=== PATIENT | female | born 1955 | race Caucasian/White ===

== ENCOUNTER 2016-12-01 16:08 | Inpatient (IN) | payer OTHER ==
--- NOTE | ~2016-12-01 | CR72 ---
[facility] A Service of [facility] RADIOLOGY TEXT RESULTS PATIENT: HEATHER BONILLA LOCATION: [address]-15 : [birth year] UNIT #: [id number] AGE: [address]: Kandi Lilly MD SEX: F ORDER DR: [id number] [facility] [address] [facility]. [place], [place] [address] [id number] MR#: [id number] Acc #: [id number] NAME: HEATHER BONILLA. : 1955 SEX: F STUDY DATE/TIME: 12/07/2016 4:19 UNIT: [facility] ROOM: [facility] STUDY DESCRIPTION: CR Chest Single View Portable Attending Physician: Kandi Lilly M.D. Ordering Physician: Wild Santiago M.D. Primary Care Physician: Primary Care Physician No MEDICAL IMAGING REPORT This report is preliminary unless electronic signature is present EXAM Single view chest INDICATION Respiratory failure for 6 days. FINDINGS Single portable AP view of the chest compared to 12/05/2016. Endotracheal tube has been removed. There is a right PICC. The heart is shifted towards the left. There is now near complete opacification of the left hemithorax. This degree of change is usually due to mucous plugging, rather than a pleural effusion. There is some hyperinflation of the right lung. There is some development of interstitial opacities in the right lung suggesting developing edema. No pneumothorax. IMPRESSION 1. Near complete whiteout of the left lung has developed in a short interval. This degree of change is typically due to mucous plugging and associated atelectasis. The presence of mediastinal shift supports mucous plugging. 2. Developing interstitial opacities in the right lung probably represents a component of interstitial edema. Unexpected findings were called to the patient's nurse at 04:50 on 12/07/2016. Dictated by... Leoncio Vera M.D. THIS IS AN ELECTRONICALLY VERIFIED REPORT Leoncio Vera M.D. at 12/07/2016 11:40 PM [facility] A Service of [facility] & [facility] RADIOLOGY TEXT RESULTS PATIENT: HEATHER BONILLA LOCATION: [facility] CICCU3-15 : 59 UNIT #: [id number] AGE: [address]: Kandi Lilly MD SEX: F ORDER DR: Chyeanne TD: 12/07/2016 11:51 JOB #: [id number] MEDICAL IMAGING REPORT Page 1 of 1 COPY
--- NOTE | ~2016-12-01 | OR ---
Unit #: [id number] #: [id number] Patient: HEATHER BONILLA [id number] [address] [address] [id number] I MR#: [id number] NAME: HEATHER BONILLA ROOM: [facility] Date of Procedure: Admission Date: 12/01/2016 Surgeon: Wild Santiago M.D. : 1955 Attending Physician: Kandi Lilly M.D. Primary Care Physician: Candace Primary Care Physician PROCEDURE OPERATIVE NOTE PROCEDURE Bronchoscopy. INDICATION Pneumonia. PREOPERATIVE DIAGNOSIS Pneumonia. POSTOPERATIVE DIAGNOSIS Pneumonia. DETAILS OF THE PROCEDURE After placing patient in the proper position, bronchoscope introduced through the endotracheal tube which was sitting well above the mynor, we examined the right upper, right middle, right lower lobe, left upper lobe, lingula and left lower lobe. There were thick, mucoid mucus plugs in the left upper and lower lobe area which were therapeutically suctioned and then we did a bronchoalveolar lavage in the left upper and lower lobe area. The patient tolerated the procedure very well. No complications happened. Specimen sent to the lab. Dictated by... Kassie Louis/karoline TD: 12/05/2016 05:06 JOB #: [id number] Unit #: [id number] #: [id number] Patient: HEATHER BONILLA PROCEDURE OPERATIVE NOTE Page 1 of 1 X Wild Santiago MD X PROCEDURE OPERATIVE NOTE
--- NOTE | ~2016-12-01 | CR72 ---
[facility] A Service of [facility] & [facility] RADIOLOGY TEXT RESULTS PATIENT: HEATHER BONILLA LOCATION: [address]-15 : [birth year] UNIT #: [id number] AGE: [address]: Kandi Lilly MD SEX: F ORDER DR: [id number] [facility] [address] [facility]. [place], [place] [address] [id number] I MR#: [id number] Acc #: [id number] NAME: HEATHER BONILLA. : 1955 SEX: F STUDY DATE/TIME: 12/04/2016 11:30 UNIT: [facility] ROOM: [facility] STUDY DESCRIPTION: CR Chest Single View Portable Attending Physician: Kandi Lilly M.D. Ordering Physician: Kandi Lilly M.D. Primary Care Physician: No Primary Care Physician MEDICAL IMAGING REPORT This report is preliminary unless electronic signature is present EXAM Frontal chest 12/04/2016 INDICATIONS Pneumonia. Congestion. Status post intubation today. COMPARISON Frontal chest compared with 05:42 hours. FINDINGS ET tube present, and the tip is approximately 1.5 cm above the level of the mynor. It could be retracted about 3 cm for positioning in the more proximal trachea. Right-sided PICC line in satisfactory position. Cardiac silhouette is borderline enlarged. The right lung appears clear. There has been interval improvement of aeration of the upper lobe on the left. There is persistent band-like atelectasis or pneumonia in the upper lobe zone, and there are hazy opacities in the left lung apex. There is a left-sided effusion with persistent consolidation in the left lung base. No pneumothorax. IMPRESSION 1. ET tube tip is about 1.5 cm above the level of the mynor and could be retracted about 3 cm for positioning in the more proximal trachea. No pneumothorax. 2. Improved appearance of the left lung compared to the prior study. Persistent opacities in the left lung base and left-sided effusion. There is a band-like area of atelectasis or pneumonia in the upper lung zone. STAT * RESULT Dictated by... Kristian Fofana M.D. [facility] A Service of [facility] & [facility] RADIOLOGY TEXT RESULTS PATIENT: HEATHER BONILLA LOCATION: [place] [address]-15 : [birth year] UNIT #: [id number] AGE: [address]: Kandi Lilly MD SEX: F ORDER DR: THIS IS AN ELECTRONICALLY VERIFIED REPORT Kristian Fofana M.D. at 12/04/2016 4:11 PM Shalom TD: 12/04/2016 14:33 JOB #: [id number] MEDICAL IMAGING REPORT Page 1 of 1 COPY
--- NOTE | ~2016-12-01 | CR72 ---
[facility] A Service of [facility] & [facility] RADIOLOGY TEXT RESULTS PATIENT: HEATHER BONILLA LOCATION: [address]-15 : [birth year] UNIT #: [id number] AGE: [address]: Kandi Lilly MD SEX: F ORDER DR: [id number] [facility] [address] [facility]. [place], [place] [address] [id number] I MR#: [id number] Acc #: [id number] NAME: HEATHER BONILLA. : 1955 SEX: F STUDY DATE/TIME: 12/09/2016 5:58 UNIT: [facility] ROOM: [facility] STUDY DESCRIPTION: CR Chest Single View Portable Attending Physician: Kandi Lilly M.D. Ordering Physician: True Mao M.D. Primary Care Physician: No Primary Care Physician MEDICAL IMAGING REPORT This report is preliminary unless electronic signature is present EXAM Portable chest, 12/09. INDICATION Respiratory failure for 8 days. FINDINGS AP portable chest is compared with 12/08/2016. Patient is rotated. Feeding tube in the stomach. Right arm PICC at the SVC level. ET tube in the trachea. Heart size stable. Bilateral infiltrates are slightly worsened which probably reflect worsening edema. There are small effusions, left greater than right. No pneumothorax identified. Dictated by... Ajay Will Jr., M.D. THIS IS AN ELECTRONICALLY VERIFIED REPORT Ajay Will Jr., M.D. at 12/09/2016 4:09 PM DEBBI/horacio TD: 12/09/2016 09:29 JOB #: [id number] MEDICAL IMAGING REPORT Page 1 of 1 COPY
--- NOTE | ~2016-12-01 | EKG ---
PATIENT: HEATHER BONILLA UNIT #: [id number] Ventricular Rate: 89 BPM Atrial Rate: 89 BPM P-R Interval: 124 ms QRS Duration: 78 ms Q-T Interval: 420 ms QTC Calculation(Bezet): 511 ms P Mountainside: 35 degrees Calculated R [place]: 62 degrees Calculated T [place]: 166 degrees Diagnosis Line: Normal sinus rhythm Diagnosis Line: ST and T wave abnormality, consider anterolateral Diagnosis Line: ischemia Diagnosis Line: Prolonged QT Diagnosis Line: Abnormal ECG Diagnosis Line: When compared with ECG of 02-DEC-2016 06:25, Diagnosis Line: (unconfirmed) Diagnosis Line: Premature ventricular complexes are no longer Diagnosis Line: Present Diagnosis Line: QT has lengthened Diagnosis Line: Confirmed by ESTEBAN BOYD MD ([id number]) on 12/07/2016 Diagnosis Line: 3:00:29 PM INTERPRETING MD: DEB ROUSSEAU
--- NOTE | ~2016-12-01 | CO ---
Unit #: [id number] #: [id number] Patient: HEATHER BONILLA [id number] [address] [place], [place] [address] [id number] I MR#: [id number] NAME: HEATHER BONILLA ROOM: [facility] Age: 61 Sex: F Admission Date: 12/01/2016 : 1955 Attending Physician: Kandi Lilly M.D. Primary Care Physician: No Primary Care Physician Consultation Date: 12/02/2016 CONSULTATION REPORT REASON FOR CONSULTATION Elevated troponin. HISTORY OF PRESENT ILLNESS This is a 61-year-old female with a past history of multiple CVAs, hyperlipidemia, seizure disorder, lupus, and tobacco abuse. She lives with her son, who is her caregiver and power of tax attorney. She is bedbound, but she is able to feed herself and smoke cigarettes. She was unable to answer questions, so the majority of this was obtained from her son who was at her bedside. She presented to the ER after increasing weakness over the past two days with decreased p.o. intake. Her son denies recent illness with fever, chills, body aches, or diarrhea. She did vomit twice. Her chest x-ray in the ER showed pneumonia which was suspicious for aspiration pneumonia. Her troponin was also elevated in the ER at 8.76. She denies chest pain or pressure or tightness. A bedside quick ultrasound was performed, per Dr. Mayco Alejandre, which showed a severely depressed EF of about 10% to 15%. Full echocardiogram is currently pending. PAST MEDICAL HISTORY 1. Hyperlipidemia. 2. Multiple CVAs. 3. Lupus. 4. Seizure disorder. 5. Tobacco abuse. 6. Osteoporosis. 7. Bilateral foot decubitus, now healed. PAST SURGICAL HISTORY Total abdominal hysterectomy. ALLERGIES Penicillin. HOME MEDICATIONS 1. Simvastatin 40 mg p.o. at bedtime. 2. Klonopin 0.5 mg p.o. three times a day. 3. Keppra 500 mg p.o. twice a day. 4. Potassium chloride 10 mEq p.o. daily. SOCIAL HISTORY The patient is immobile and bedbound. She is able to feed herself and smoke. She lives with her son and widejdwv-dn-sks who are her caregivers. Unit #: [id number] #: [id number] Patient: HEATHER BONILLA Her son is her iejbj-xs-zvsutuch. She denies alcohol or illicit drug use. FAMILY HISTORY Negative for coronary artery disease. REVIEW OF SYSTEMS Unable to obtain from patient at this time. Her son was able to provide the answers. Otherwise negative except for what was stated in the HPI. PHYSICAL EXAMINATION VITAL SIGNS: Temperature 97.4, heart rate 102, respiratory rate 24, blood pressure 97/66. Height 61 inches, weight 45 kg. GENERAL: This is a pleasant 61-year-old female resting in bed in no acute distress. HEENT: Head is atraumatic, normocephalic. Pupils are equal and round. Mucous membranes are moist. NECK: Supple. Trachea is midline. Negative for JVD. LUNGS: Rhonchi. Nonlabored respirations. CARDIOVASCULAR: S1, S2. Regular rate and rhythm. No significant murmurs, rubs, or gallops. ABDOMEN: Soft, nontender, nondistended. EXTREMITIES: Pedal pulses are diminished. No pedal edema. No cyanosis. NEUROLOGIC: Alert and awake, oriented to person. Right-sided weakness. DIAGNOSTIC STUDIES LABORATORY: Sodium 138, potassium 4.5, chloride 115, BUN 43, creatinine 1.3, glucose 95. Hemoglobin 9.1, hematocrit 29.5, white blood cell count 11.6, platelets 55,000. Troponin 8.6 with repeat troponin 6.4. IMAGING: Chest x-ray showed diffuse bilateral reticulonodular infiltrate. A 3.9 cm infrarenal abdominal aortic aneurysm. Head CT shows multiple old infarcts with no acute changes. CARDIOVASCULAR: EKG reveals sinus rhythm with a ventricular rate of [address] changes. ASSESSMENT 1. Non ST elevated myocardial infarction. 2. Acute systolic congestive heart failure with ejection fraction approximately 10% to 15%. 3. Pneumonia, suspect aspiration. 4. Acute kidney injury. 5. Tobacco abuse. 6. Thrombocytopenia. 7. Lupus. 8. History of multiple cerebrovascular accidents. PLAN 1. We will get a full echocardiogram. 2. Check a fasting lipid profile. 3. Add low-dose beta aurelio with parameters for heart rate and blood pressure. 4. Add HEMAL inhibitor as blood pressure tolerates. 5. We will monitor creatinine closely. 6. Continue statin. 7. Check lipid profile. 8. BMP and CBC in a.m. Unit #: [id number] #: [id number] Patient: HEATHER BONILLA Thank you for asking us to see this patient. We appreciate the consult. Dictated by... Geraldine Parsons APRN for Kassie Arellano TD: 12/03/2016 14:27 JOB #: [id number] CONSULTATION REPORT Page 1 of 1 X X CONSULTATION REPORT
--- NOTE | ~2016-12-01 | CO ---
Unit #: [id number] #: [id number] Patient: HEATHER BONILLA [id number] [address] [place], [place] [address] [id number] I MR#: [id number] NAME: HEATHER BONILLA ROOM: [facility] Age: 61 Sex: F Admission Date: 12/01/2016 : 1955 Attending Physician: Kandi Lilly M.D. Primary Care Physician: No Primary Care Physician Consultation Date: 12/08/2016 CONSULTATION REPORT REASON FOR CONSULTATION Gross hematuria. HISTORY This 61-year-old woman developed gross hematuria from her catheter overnight in the Intensive Care Unit. The catheter was replaced apparently with three way irrigation and after manually irrigating some clots it has run entirely clear. She was hospitalized with pneumonia and myocardial infarction. It is thought that there may have been some Whitten traction trauma. Further history is from the medical record as patient is intubated and sedated. PAST MEDICAL HISTORY CVA, paraplegia, lupus, seizures, ejection fraction 10%. PAST SURGICAL HISTORY Hysterectomy, foot surgeries. MEDICATIONS Low dose aspirin, Lovenox, and multiple other medications. ALLERGIES Penicillin. FAMILY HISTORY Noncontributory. SOCIAL HISTORY Positive for tobacco use. REVIEW OF SYSTEMS Unable. PHYSICAL EXAMINATION GENERAL: The patient is intubated and sedated. ABDOMEN: Soft, nontender. DIAGNOSTIC STUDIES LABORATORY STUDIES: BUN 34, creatinine 1.6, WBC 24.5, hemoglobin 9.8, platelets 148, urine culture is pending. IMAGING STUDIES: X-rays - none of the upper tract. Unit #: [id number] #: [id number] Patient: HEATHER BONILLA IMPRESSION 1. Gross hematuria, likely mechanical Whitten trauma in intensive care setting with ongoing anticoagulants. 2. Very poor prognosis discussed with Dr. Mao and with son. 3. Significant tobacco history. PLAN Will await urine culture. Observe off of CBI with continued catheter drainage. Will defer further evaluation unless significant recurrence of hematuria and/or sufficient recovery to indicate upper tract evaluation and cystoscopy. Will follow at this time. Dictated by... Kassie Bray/efraín TD: 12/08/2016 11:38 JOB #: [id number] CC: Joya Borrego M.D. CONSULTATION REPORT Page 1 of 1 X Ajay Rosen MD CONSULTATION REPORT
--- NOTE | ~2016-12-01 | CR72 ---
[facility] A Service of [facility] & [facility] RADIOLOGY TEXT RESULTS PATIENT: HEATHER BONILLA LOCATION: [address]15 : [birth year] UNIT #: [id number] AGE: [address]: Kandi Lilly MD SEX: F ORDER DR: [id number] [facility] [address] [facility]. [place], [place] [address] [id number] I MR#: [id number] Acc #: [id number] NAME: HEATHER BONILLA. : 1955 SEX: F STUDY DATE/TIME: 12/05/2016 5:00 UNIT: [facility] ROOM: [facility] STUDY DESCRIPTION: CR Chest Single View Portable Attending Physician: Kandi Lilly M.D. Ordering Physician: Wild Santiago M.D. Primary Care Physician: No Primary Care Physician MEDICAL IMAGING REPORT This report is preliminary unless electronic signature is present EXAM Portable chest, 12/05. INDICATIONS Respiratory failure and pneumonia. FINDINGS AP portable chest is compared with 12/04/2016. ET tube [id number] trachea in good position. Right arm PICC in the SVC. Heart size stable. Right lung is clear. There is still consolidation at the left base with a small left effusion. No pneumothorax. Dictated by... Ajay Will Jr., M.D. THIS IS AN ELECTRONICALLY VERIFIED REPORT Ajay Will Jr., M.D. at 12/05/2016 3:48 PM DEBBI/sherman TD: 12/05/2016 14:02 JOB #: [id number] MEDICAL IMAGING REPORT Page 1 of 1 COPY
--- NOTE | ~2016-12-01 | OR ---
Unit #: [id number] #: [id number] Patient: HEATHER BONILLA [id number] [address] [address] [id number] I MR#: [id number] NAME: HEATHER BONILLA ROOM: [facility] Date of Procedure: Admission Date: 12/01/2016 Surgeon: Wild Santiago M.D. : 1955 Attending Physician: Kandi Lilly M.D. Primary Care Physician: Candace Primary Care Physician PROCEDURE OPERATIVE NOTE PROCEDURE Endotracheal intubation. INDICATION Respiratory failure. PREOPERATIVE DIAGNOSIS Respiratory failure. POSTOPERATIVE DIAGNOSIS Respiratory failure. DETAILS OF THE PROCEDURE After placing patient in a proper position, we gave 20 mg of etomidate IV and 4 mg of versed IV. Under direct visualization with the laryngoscope, a size 8 endotracheal tube was passed through the vocal cords. The patient tolerated the procedure very well. No complications happened. Dictated by... Kassie Louis/karoline TD: 12/05/2016 05:03 JOB #: [id number] PROCEDURE OPERATIVE NOTE Page 1 of 1 X Wild Santiago MD X PROCEDURE OPERATIVE NOTE
--- NOTE | ~2016-12-01 | OR ---
Unit #: [id number] #: [id number] Patient: HEATHER BONILLA [id number] [address] [address] [id number] I MR#: [id number] NAME: HEATHER BONILLA ROOM: [facility] Date of Procedure: 12/07/2016 Admission Date: 12/01/2016 Surgeon: Yony Mao M.D. : 1955 Attending Physician: Kandi Lilly M.D. Primary Care Physician: Candace Primary Care Physician PROCEDURE OPERATIVE NOTE PREOPERATIVE DIAGNOSIS Respiratory failure and left side complete opacification. POSTOPERATIVE DIAGNOSIS PROCEDURE PERFORMED Direct laryngoscope intubation. PRE-OP MEDICATIONS 1. Etomidate 20 mg IV x1. 2. Versed 2 mg IV x1. INDICATION FOR PROCEDURE Respiratory failure and mucous plug. COMPLICATIONS None. DESCRIPTION OF PROCEDURE An informed consent was obtained from the son after explaining the benefits and risks of this procedure. The patient was prepped and positioned in the proper way. Then my gift shop assistant, Steph, the nurse practitioner, assisted with this procedure. The patient was premedicated with etomidate and Versed 2 mg and then with laryngoscope (1) size 3, a good view of his vocal cords were obtained and then size 8 ET tube were passed beyond the vocal cord with no complication. The cuff was inflated. Then, a CO2 color change was checked. The patient tolerated her procedure well with no immediate complications. Dictated by... Yony Mao M.D. EA/efraín TD: 12/07/2016 12:34 JOB #: [id number] Unit #: [id number] #: [id number] Patient: HEATHER BONILLA PROCEDURE OPERATIVE NOTE Page 1 of 1 X YONY WOLFF MD PROCEDURE OPERATIVE NOTE
--- NOTE | ~2016-12-01 | CR72 ---
[facility] A Service of [facility] & [facility] RADIOLOGY TEXT RESULTS PATIENT: HEATHER BONILLA LOCATION: [place] [address]-15 : [birth year] UNIT #: [id number] AGE: [address]: Kandi Lilly MD SEX: F ORDER DR: [id number] [place] [address] [facility]. [place], [place] [address] [id number] I MR#: [id number] Acc #: [id number] NAME: HEATHER BONILLA. : 1955 SEX: F STUDY DATE/TIME: 12/03/2016 4:59 UNIT: [facility] ROOM: [facility] STUDY DESCRIPTION: CR Chest Single View Portable Attending Physician: Kandi Lilly M.D. Ordering Physician: True Mao M.D. Primary Care Physician: No Primary Care Physician MEDICAL IMAGING REPORT This report is preliminary unless electronic signature is present EXAM Single view chest. INDICATIONS Congestive heart failure and pneumonia for 2 days. FINDINGS Single portable AP view of the chest compared to 12/01/2016. The right PICC over the SVC. Heart and mediastinal contours are unchanged. There is left basilar airspace opacity and/or pleural effusion. IMPRESSION 1. New left lower lobe airspace opacity/pleural effusion. 2. Right PICC terminates over the SVC. Dictated by... Leoncio Vera M.D. THIS IS AN ELECTRONICALLY VERIFIED REPORT Leoncio Vera M.D. at 12/04/2016 1:02 AM MADHU/isabel TD: 12/03/2016 18:05 JOB #: [id number] MEDICAL IMAGING REPORT Page 1 of 1 COPY
--- NOTE | ~2016-12-01 | FU ---
[facility] Nutrition Therapy DATE: 12/03/16 Patient: HEATHER BONILLA Physician: KAREL Address: [address] [facility] Room/Bed: [address], Zip: [place] [address] Admit Date: 12/01/16 Date of : [birth year] Height: 5 1 Weight: 101 46 NUTRITION MONITORING/FOLLOW-UP: Reason: NUTRITION F/U- PATIENT PLACED ON DIET IN ICU Anthropometrics: HT: 61", WT: 46.5KG, BMI: 19.4 Labs: 12/03/16- K: 3.4, BUN: 40, CREA: 1.5, ALB: 2.6, GFR: 37.8 Meds: 5% DEXTROSE, KCL, MAG SULFATE, DOPAMINE, FUROSEMIDE, MILK OF MAG, COLACE I&O's: [id number]/[phone] Skin: FUNGAL INFECTION BL GROIN, OLD PRESSURE WOULDS TO BL HEELS (HEALED) Estimated Nutrition Needs: INCREASED 2' CURRENT DIAGONSES, ALTERED NUTRIENT NEEDS Assessment: PATIENT WAS SEEN BY TRAIN CREW MEMBER WHO UPGRADED PATIENT'S DIET TO PUREE WITH 6 SMALL MEALS A DAY, AND TO EAT SLOWLY. PATIENT IS CURRENTLY ON A 2000ML FLUID RESTRICTION. NURSING REPORTED THAT THEY ARE TRYING TO AVOID PLACING A DHT IF POSSIBLE, AND PATIENT DRINKS 2 ENSURES DAILY AT HOME. PATIENT NOT APPROPRIATE FOR INTERVIEW ATT. Dx: INADEQUATE PROTEIN-ENERGY INTAKE R/T WEAKNESS AEB EMESIS AFTER EATING ON THE DAYS PRIOR TO ADMISSION, NPO STATUS- IMPROVED: PATIENT NO LONGER NPO Intervention: 1. INITIATE PO DIET PER TRAIN CREW MEMBER RECOMMENDATIONS, MONITOR FOR EMESIS AFTER MEALS 2. SUPPLEMENTATION 3. MEDS/FLUIDS PER MD Monitoring, Evaluation and Goals: 1. ORAL INTAKE; ADVANCE DIET PER TRAIN CREW MEMBER RECOMMENDATIONS APPROPRIATE 2. WEIGHT; MONITOR FLUID STATUS, PREVENT LOSS OF LEAN BODY MASS Recommendations: 1. PER TRAIN CREW MEMBER RECOMMENDATIONS START PUREED DIET WITH 6 SMALL MEALS/DAY. CONTINUE 2000ML FLUID RESTRICTION PER MD, ADD 2GM NA TO DIET ORDER. 2. SEND ENSURE BID WITH BREAKFAST AND LUNCH AND MAGIC CUPS WITH LUNCH AND DINNER. 3. ENCOURAGE ADEQUATE PO AND SUPPLEMENT INTAKES RD TO F/U PER PROTOCOL AND PRN R/T PATIENT MODERATELY COMPROMISED Status: [facility] Nutrition Therapy DATE: 12/03/16 Patient: HEATHER BONILLA Physician: KAREL Address: [address] Room/Bed: [address], Zip: [place] [address] Admit Date: 12/01/16 Date of : [birth year] Height: 5 1 Weight: 101 46 Respectfully, RHINA BALDERAS RD, LD [employer] and Nutrition[facility] Services [facility] cc: client file
--- NOTE | ~2016-12-01 | OR ---
Unit #: [id number] #: [id number] Patient: HEATHER BONILLA [id number] [address] [address] [id number] I MR#: [id number] NAME: HEATHER BONILLA [facility]OM[facility] Date of Procedure: 12/07/2016 Admission Date: 12/01/2016 Surgeon: Yony Mao M.D. : 1955 Attending Physician: Kandi Lilly M.D. Primary Care Physician: Candace Primary Care Physician PROCEDURE OPERATIVE NOTE PROCEDURE PERFORMED Therapeutic and diagnostic bronchoscopy with bronchial washings. INDICATION FOR PROCEDURE Complete opacification of the left lung due to a large mucous plug. FINDINGS Extensive and large mucus plugs extending from the level of the mynor and completely obstructing the left main bronchus into the left upper lobe, lingula, and left lower lobe. PREMEDICATION Versed 3 mg IV x1. DESCRIPTION OF THE PROCEDURE An informed consent was obtained from the son after explaining the benefits and risks of this procedure. The bronchoscope was advanced through the ET tube at the level of the mynor. A large, thick, greenish-yellowish mucous plug was noted obstructing the left main bronchus and then with normal saline flushes the mucous plug was broke in small pieces and then was aspirated out. The left upper lobe, lingula, and left lower lobe were examined after and appeared just erythematous from the bronchoscope but all the mucous plugs again were aspirated and washing was obtained from the left lower lobe. The bronchoscope was retracted and then readvanced the right main bronchus, and the right upper lobe, right lower lobe and right middle lobe were just fine. The bronchoscope was retracted out then and patient tolerated his procedure well with no immediate complication. Dictated by... Yony Mao M.D. EA/efraín TD: 12/07/2016 12:45 JOB #: [id number] Unit #: [id number] #: [id number] Patient: HEATHER BONILLA PROCEDURE OPERATIVE NOTE Page 1 of 1 X YONY WOLFF MD X PROCEDURE OPERATIVE NOTE
--- NOTE | ~2016-12-01 | CR72 ---
[facility] A Service of [facility] & [facility] RADIOLOGY TEXT RESULTS PATIENT: HEATHER BONILLA LOCATION: [place] [id number] : [birth year] UNIT #: [id number] AGE: [address]: Kandi Lilly MD SEX: F ORDER DR: [id number] [facility] [address] [facility] [facility] [place], [place] [address] [id number] I MR#: [id number] Acc #: [id number] NAME: HEATHER BONILLA : 1955 SEX: F STUDY DATE/TIME: 12/08/2016 5:47 UNIT: [facility] ROOM: [facility] STUDY DESCRIPTION: CR Chest Single View Portable Attending Physician: Kandi Lilly M.D. Ordering Physician: True Mao M.D. Primary Care Physician: Primary Care Physician No MEDICAL IMAGING REPORT This report is preliminary unless electronic signature is present EXAM Single view chest INDICATION Respiratory failure. FINDINGS Single portable AP view of the chest compared to 12/07/2016. Endotracheal tube has been positioned approximately 4 cm above the mynor. The right PICC and enteric tube remain in place. There is significantly improved aeration in the left lung. There is some developing atelectasis and/or effusion in the right lung base. IMPRESSION 1. Significantly improved aeration in the left lung with moderate basilar airspace opacity and/or effusion remaining. 2. Developing atelectasis and/or small effusion in the right lung. Dictated by... Leoncio Vera M.D. THIS IS AN ELECTRONICALLY VERIFIED REPORT Leoncio Vera M.D. at 12/09/2016 12:49 AM MADHU/dashawn TD: 12/08/2016 06:40 JOB #: [id number] MEDICAL IMAGING REPORT Page 1 of 1 COPY
--- NOTE | ~2016-12-01 | FU ---
[facility] Nutrition Therapy DATE: 12/05/16 Patient: HEATHER BONILLA Physician: KAREL Address: [address] [place] [address] RD Room/Bed: [address], Zip: [place] [address] Admit Date: 12/01/16 Date of : [birth year] Height: 5 1 Weight: 103 47 NUTRITION MONITORING/FOLLOW-UP: Reason: Consult for enteral nutrition Anthropometrics: Ht: 5'1" adm wt: 46.5 kg BMI: 19.4 Wt 12/05: 47 kg Labs: Na+ 130 K+ 3.1 Gluc 132 BUN 40 Creat 1.5 Ca++ 7.5 Alb 2.2 AST 47 Accuchecks 104 GFR 37.8 Meds: D5%, KCl, MgSO4, dopamine, levophed, furosemide, MOM, colace, versed, zofran I&O's: 2234/1085, last BM 12/04 Skin: no changes noted since previous assessment Edema: None noted Estimated Nutrition Needs: 0980-1853 kcals (28-32 kcals/kg) 56-70 grams protein (1.2-1.5 grams/kg) Fluids per MD Assessment: Chart reviewed, events noted. RD previously assessed the pt on 12/03 when the pt was ordered a diet per STEEL DETAILER recommendations. Pt is now intubated in the ICU on pressors. Per RN report, DHT has been placed and RD consulted to provide enteral nutrition recommendations. Per previous nutrition assessments, the pt was eating poorly prior to admission with emesis after PO intake. Of note, the pt was on a fluid restriction prior to intubation with h/o CHF. Please see recommendations below. Dx: Inadequate protein-energ intake RT clinical condition, ventilator dependence AEB NPO status, RD consult for EN recommendations. Intervention: 1. Enteral nutrition Monitoring, Evaluation and Goals: 1. Oral intake- NO LONGER RELEVANT (PT INTUBATED) 2. Weight; monitor fluid status, prevent loss of lean body mass- IN PROGRESS NEW GOALS (IN ADDITION TO ABOVE): 1. Enteral nutrition; provide >80% goal volume x 24 hrs [facility] Nutrition Therapy DATE: 12/05/16 Patient: HEATHER BONILLA Physician: KAREL Address: [address] [place] [address] RD Room/Bed: [address], Zip: [place] [address] Admit Date: 12/01/16 Date of : [birth year] Height: 5 1 Weight: 103 47 2. Improve labs; electrolytes, BUN, creat Recommendations: 1. Once medically feasible, start enteral nutrition with TwoCal HN @ 10 mL/hr. Increase by 10 mL q 8 hrs as tolerated to goal of 30 mL/hr. This will provide: 1440 kcals/ 60 grams protein/ 504 mL free H20 *Free H20 flushes per MD discretion noting CHF 2. If the pt is extubated, recommend diet per STEEL DETAILER recommendations. RD will follow up to order supplements as appropriate. Status: Pt is at moderate nutritional risk. RD will continue to follow up per protocol. Respectfully, RON VELASQUEZ RD, LD Food and Nutritional Services [facility] cc: client file
--- NOTE | ~2016-12-01 | HP ---
Unit #: [id number] #: [id number] Patient: HEATHER BONILLA [id number] [address] [place], [place] [address] [id number] I MR#: [id number] NAME: HEATHER BONILLA ROOM: [facility] Age: 61 Sex: F Admission Date: 12/01/2016 : 1955 Attending Physician: Wild Santiago M.D. Primary Care Physician: Primary Care Physician No HISTORY AND PHYSICAL CHIEF COMPLAINT Possible aspiration pneumonia, gjq-XT-feeaiejyd WV. HISTORY OF PRESENT ILLNESS This very pleasant 61-year-old female with multiple CVAs, SLE, seizure disorder, hyperlipidemia, was transferred from [facility] emergency department for weakness, found to have pneumonia and a byt-IY-mdousrzgk WV. The patient herself is a poor historian. Son supplements history. The patient was in her usual state of health until two days prior to admission when she became increasingly weak, unable to feed herself with diminished p.o. intake, and some episodes of vomiting after eating. No real cough or shortness of breath, no complaints of chest pain, fever or chills. She went to [facility] emergency department this afternoon where her chest x-ray shows diffuse bilateral reticulonodular infiltrates. She was given IV clindamycin for possible aspiration. Family states that she does not typically have difficulty swallowing or history of aspiration. Head CT showed multiple old-appearing CVAs. Troponin was performed and was 7.5. Her EKG shows ST-wave inversions mainly laterally but also a little bit in the inferior leads. Patient denies active chest pain currently. Her current blood pressure is 88/65, heart rate 103, O2 saturation is 100% on 1 liter of oxygen. She received a therapeutic dose of Lovenox, aspirin, albuterol and 900 mg of IV clindamycin prior to transfer. Although Solu-Medrol and nitroglycerin paste were ordered, family declined these two medicines. I have discussed the case with Dr. Santiago who will be seeing the patient in the ICU as well, and asked that clindamycin be continued along with some Levaquin pending further workup given that patient is penicillin allergic. Cardiology has not yet been called about the patient and I will make a call shortly to them as well. PAST MEDICAL HISTORY 1. Hyperlipidemia. 2. Lupus. 3. Multiple CVAs with paraplegia. 4. Seizure disorder. 5. Osteoporosis. 6. Total abdominal hysterectomy. 7. Bilateral foot decubiti now healed. ALLERGIES Penicillin. HOME MEDICATIONS Unit #: [id number] #: [id number] Patient: HEATHER BONILLA 1. Klonopin 05 mg t.i.d. 2. Zocor 40 mg daily. 3. Keppra 500 mg b.i.d. 4. Potassium 10 mEq daily. SOCIAL HISTORY The patient lives with her son and son's family. She smokes one-half pack per day of tobacco. Does not drink alcohol. FAMILY HISTORY Negative for CAD. REVIEW OF SYSTEMS Somewhat difficult to obtain as patient herself is a poor historian. PHYSICAL EXAMINATION VITAL SIGNS: Temperature will be obtained, pulse 103 with some PVCs, blood pressure 88/65, O2 saturation is 100% on 1 liter of oxygen. GENERAL: Pleasant, very thin 61-year-old female currently in no acute distress. HEENT: Eyes PERRLA. Extraocular muscles are intact. Pharynx edentulous, patient has dentures in place. NECK: Supple without adenopathy or thyromegaly. CHEST: Rhonchi. HEART: Normal S1, S2 with no definite murmur. ABDOMEN: Bowel sounds are present. No hepatosplenomegaly, tenderness or masses. EXTREMITIES: Diminished pedal pulses in the feet with flexion contractions of the feet, healed heel decubiti. NEUROLOGIC: Awake, alert. She is a bit confused. Cranial nerves are intact. She is unable to move her legs. She can squeeze my hands bilaterally but her right hand is stronger than her left hand. Needs help just to rollover. DIAGNOSTIC STUDIES LABORATORY: Prior to transfer hematocrit 34.7, white blood cell count 12.7, platelet count 74. SMA-12 CO2 is 20.5, glucose 142, BUN 51, creatinine 1.8, calcium 8.5, unsure if the GFR is 28 or 34 according to her labs, albumin 3. Lactic acid 2.2. Troponin 7.56. INR 1.27, PTT 37. IMAGING: Chest x-ray diffuse bilateral reticulonodular infiltrates. Suspect 3.9 cm infrarenal abdominal aortic aneurysm, slightly increased from 2013 when it was 3.[address] shows multiple old infarcts although some of these infarcts appear to be new since prior CT but nothing acute. Atrophy noted. CARDIOVASCULAR: EKG normal sinus rhythm rate 96 with T-wave inversions mainly laterally but there are some T-wave inversions noted inferior as well. ASSESSMENT 1. Pneumonia, suspect aspiration versus community-acquired. Patient is penicillin allergic. 2. Tvz-MG-setyuoqia myocardial infarction, asymptomatic. 3. Multiple cerebrovascular accidents with paraplegia. 4. Seizure disorder on Keppra. 5. Systemic lupus erythematosus. Unit #: [id number] #: [id number] Patient: HEATHER BONILLA 6. Hyperlipidemia. 7. Acute kidney injury. 8. Thrombocytopenia. 9. Tobacco use. PLAN 1. Clindamycin and Levaquin for now, I have discussed the case with Dr. Santiago. 2. Will dose medications based on patient's renal function. 3. Gentle IV fluids, will give a small bolus now. 4. Aspirin and Lovenox. 5. Re-order patient's home medicines. 6. Serial cardiac enzymes, obtain echo, and we will discuss the case with Cardiology. 7. Repeat all labs in the morning. 8. Check B12 level. Critical care time spent in evaluating this patient was 40 minutes. Dictated by Kassie Moody/danielle TD: 12/01/2016 21:47 JOB #: [id number] HISTORY AND PHYSICAL Page 1 of 1 X Joya Borrego MD X HISTORY AND PHYSICAL
--- NOTE | ~2016-12-01 | CR6 ---
[facility] A Service of [facility] & [facility] RADIOLOGY TEXT RESULTS PATIENT: HEATHER BONILLA LOCATION: [address] : [birth year] UNIT #: [id number] AGE: [address]: Kandi Lilly MD SEX: F ORDER DR: [id number] [facility] [address] [place], [place] [address] [id number] I MR#: [id number] Acc #: [id number] NAME: HEATHER BONILLA. : 1955 SEX: F STUDY DATE/TIME: 12/05/2016 8:48 UNIT: [facility] ROOM: [facility] STUDY DESCRIPTION: CR Abdomen Portable Sng View Attending Physician: Kandi Lilly M.D. Ordering Physician: Tato Daniels M.D. Primary Care Physician: No Primary Care Physician MEDICAL IMAGING REPORT This report is preliminary unless electronic signature is present EXAM Supine radiograph of the abdomen 12/05/2016 HISTORY Dobbhoff tube placement. COMPARISON STUDIES CT abdomen and pelvis 01/25/2014 FINDINGS Supine radiograph of the abdomen is presented. Enteric tube extends to level of distal stomach. Ill defined density left retrocardiac region probably reflects combination of airspace disease and small left pleural effusion. Left basilar pneumonia and/or atelectasis could be considered. The bowel gas pattern is normal. There is no evidence of free air. No acute appearing bony abnormality. Abdominal aortic aneurysm measuring approximately 4 cm in diameter. On prior CT examination 01/25/2014 the aneurysm sac measured about 3.7 cm in diameter. Taking into account magnification factors on abdominal plain radiograph, there is probably minimal, if any, change in the caliber of the aneurysm sac in this single plane. The anterior is best further evaluated, if clinically warranted at this time, with CT angiography. Dictated by... Triston Gonzales M.D. THIS IS AN ELECTRONICALLY VERIFIED REPORT Triston Gonzales M.D. at 12/05/2016 5:50 PM Shadi TD: 12/05/2016 17:01 JOB #: [id number] [facility] A Service of [facility] & [facility] RADIOLOGY TEXT RESULTS PATIENT: HEATHER BONILLA LOCATION: [address] : [birth year] UNIT #: [id number] AGE: [address]: Kandi Lilly MD SEX: F ORDER DR: MEDICAL IMAGING REPORT Page 1 of 1 COPY
--- NOTE | ~2016-12-01 | CR7 ---
[facility] A Service of [facility] & [facility] RADIOLOGY TEXT RESULTS PATIENT: HEATHER BONILLA LOCATION: [address] : [birth year] UNIT #: [id number] AGE: [address]: Kandi Lilly MD SEX: F ORDER DR: [id number] [facility] [address] [facility]. [place], [place] [address] [id number] I MR#: [id number] Acc #: [id number] NAME: HEATHER BONILLA. : 1955 SEX: F STUDY DATE/TIME: 12/06/2016 9:59 UNIT: [facility] ROOM: [facility] STUDY DESCRIPTION: CR Abdomen Single AP View Attending Physician: Kandi Lilly M.D. Ordering Physician: Wild Santiago M.D. Primary Care Physician: No Primary Care Physician MEDICAL IMAGING REPORT This report is preliminary unless electronic signature is present EXAM Single-view abdomen. HISTORY Ileus. COMPARISON 12/05/2016 FINDINGS A single AP view of the abdomen demonstrates a nonobstructive bowel gas pattern. Minimal air distension of the transverse colon. Extensive aortic and iliac vascular calcifications noted. Weighted tip of a feeding tube noted within the distal stomach. No organomegaly. Generalized osteopenia. Overall the bowel gas pattern is unremarkable and no convincing evidence of ileus. Dictated by... Corey Dunn M.D. THIS IS AN ELECTRONICALLY VERIFIED REPORT Corey Dunn M.D. at 12/07/2016 12:29 PM [place] TD: 12/06/2016 22:51 JOB #: [id number] MEDICAL IMAGING REPORT Page 1 of 1 COPY
--- NOTE | ~2016-12-01 | A ---
[facility] Nutrition Therapy DATE: 12/02/16 Patient: HEATHER BONILLA Physician: KAREL Address: [address] [place] [address] Room/Bed: [address], Zip: [place] [address] Admit Date: 12/01/16 Date of : [birth year] Height: 5 1 Weight: 102 46.5 NUTRITIONAL ASSESSMENT: REASON: NPO status in ICU 61 yo female admitted for possible aspiration PNA, weakness, NSTEMI PMH: Lupus, multiple previous strokes, SLE, seizure disorder, paraplegic, CHF, EF~10%, HLD, osteoporosis, smoker Anthropometrics: Ht: 5'1" Wt: 46.5 kg BMI: 19.4 Labs: Cl- 115 BUN 43 ca++ 7.4 Alb 2.3 GFR 44.9 Meds: Furosemide, protonix, colace, zofran, MOM, dopamine I/O & Bowel function: 1119/275, last BM 12/01 Skin Integrity: Fungal infection BL groin/ wolfgang-area Old pressure wounds BL heels (healed) Edema: none noted Estimated Nutrition Needs: 8942-1225 kcals (28-32 kcals/kg) 56-70 grams protein (1.2-1.5 grams/kg) Diet: NPO Assessment: Chart reviewed, events noted. 61 yo female admitted for NSTEMI, weakness and possible aspiration PNA. Per MD note and RN report, the pt was able to feed herself until a couple days ago when she became weak. Pt has had decreased nutritional intake since then, and some emesis after eating. MACHINE SHOP REPAIR TECHNICIAN was previously consulted; however, holding MACHINE SHOP REPAIR TECHNICIAN eval at this time for pt to remain NPO. Pt with significant cardiovascular history noting CHF. Weight suspected due to noted poor intake. Pt is a poor historian and is not appropriate for nutrition interview/ education at this time. Please see recommendations below. Dx: Inadequate protein-energy intake RT weakness AEB emesis after eating on the days prior to admission, NPO status. Intervention: 1. MACHINE SHOP REPAIR TECHNICIAN once approriate 2. EN if not advanced to PO diet [facility] Nutrition Therapy DATE: 12/02/16 Patient: HEATHER BONILLA Physician: KAREL Address: [address] [place] [address] Room/Bed: [address], Zip: [place] [address] Admit Date: 12/01/16 Date of : [birth year] Height: 5 1 Weight: 102 46.5 Monitoring, Evaluation and Goals: 1. Oral intake; advance diet per MACHINE SHOP REPAIR TECHNICIAN recommendations as appropriate 2. Enteral nutrition; initiate if unable to advance to PO diet 3. Weight; monitor fluid status, prevent loss of lean body mass Recommendations: 1. Once medically feasible, recommend MACHINE SHOP REPAIR TECHNICIAN evaluation due to noted possible aspiration PNA. Advance diet per MACHINE SHOP REPAIR TECHNICIAN recommendations + 2 gram Na+ restriction and 6 small meals. 2. If unable to advance to PO diet, consider obtaining enteral access once medically feasible when the pt is hemodynamically stable. Initiate enteral nutrition with (low volume formula) TwoCal HN @ 15 mL/hr. Increase by 10 mL q 8 hrs as tolerated to goal of 30 mL/hr to provide: 1440 kcals/ 60 grams protein/ 504 mL free H20 *Free water flushes per MD orders noting h/o CHF Pt is at moderate nutritional risk. RD will follow hospital course per protocol. Respectfully, RON VELASQUEZ, ROB, LD Food and Nutritional Services [facility] cc: client file
--- NOTE | ~2016-12-01 | CT57 ---
[facility] A Service of [facility] & [facility] RADIOLOGY TEXT RESULTS PATIENT: HEATHER BONILLA LOCATION: [address] : [birth year] UNIT #: [id number] AGE: [address]: Kandi Lilly MD SEX: F ORDER DR: [id number] [facility] [address] [facility] [facility]. [place], [place] [address] [id number] I MR#: [id number] Acc #: [id number] NAME: HEATHER BONILLA : 1955 SEX: F STUDY DATE/TIME: 12/03/2016 15:45 UNIT: [facility] ROOM: [facility] STUDY DESCRIPTION: CT Chest Wo Cont Attending Physician: Kandi Lilly M.D. Ordering Physician: Wild Santiago M.D. Primary Care Physician: No Primary Care Physician MEDICAL IMAGING REPORT This report is preliminary unless electronic signature is present EXAM CT chest without contrast. HISTORY Shortness of air for 3 days. [address]neumonia. TECHNIQUE This CT exam was performed with one or more of the following radiation dose reduction techniques: automatic exposure control, adjustment of mA and/or kV according to patient size, and iterative reconstruction. FINDINGS CT chest without contrast demonstrates small bilateral pleural effusions. Extensive atelectasis and probable superimposed additional airspace infiltrates in the left lower lobe which is only partially aerated. Additional patchy atelectasis or infiltrate in the posterior left upper lobe and lingula. Mild atelectasis in the posterior right lower lobe. Images of the upper abdomen demonstrate a 1.8 cm gallstone. There is also a small amount of air within the upper pole of the left kidney, probably within dilated upper pole calyces. This suggests left urinary obstruction and possibly gas producing infection or reflux from bladder intervention. Correlation to the patient's history in this regard is recommended. Consider CT abdomen and pelvis for further evaluation as clinically warranted. IMPRESSION 1. Moderately extensive and dense infiltrate and probable superimposed atelectasis in the left lower lobe. Additional iwxt-hs-voyjfuay patchy multifocal infiltrates and atelectasis in the left upper lobe and lingula. 2. Small bilateral pleural effusions. 3. Images of the upper abdomen demonstrate probable moderate caliectasis [facility] A Service of [facility] & [facility] RADIOLOGY TEXT RESULTS PATIENT: HEATHER BONILLA LOCATION: [facility]3-15 : 59 UNIT #: [id number] AGE: [address]: Kandi Lilly MD SEX: F ORDER DR: in the upper pole of the left kidney and tiny air bubbles in the left upper pole renal collecting system. Findings are concerning for left urinary obstruction with possible gas producing infection versus reflux of air from bladder or ureteral instrumentation. Correlation to the patient's history in this regard is recommended. Consider further evaluation with CT abdomen and pelvis as clinically warranted. 4. Nonobstructing 1.8 cm gallstone with no gallbladder distension. Dictated by... Jose Ramon Ro M.D. THIS IS AN ELECTRONICALLY VERIFIED REPORT Jose Ramon Ro M.D. at 12/04/2016 10:37 PM ANGELA/horacio TD: 12/04/2016 03:12 JOB #: [id number] MEDICAL IMAGING REPORT Page 1 of 1 COPY
--- NOTE | ~2016-12-01 | CO ---
Unit #: [id number] #: [id number] Patient: PEDRO CAREY [id number] [facility] [address] [place], [place] [address] [id number] I MR#: [id number] NAME: PEDRO CAREY ROOM: [facility] Age: 61 Sex: F Admission Date: 12/01/2016 : 1955 Attending Physician: Kandi Lilly M.D. Primary Care Physician: No Primary Care Physician Consultation Date: 12/02/2016 CONSULTATION REPORT REQUESTING PHYSICIAN Consultation requested by Dr. Tato Daniels. REASON FOR CONSULTATION Thrombocytopenia, please evaluate. HISTORY OF PRESENT ILLNESS Ms. Pedro Carey is 61 years old with a history of previous strokes and seizure disorder, who was transferred from [facility] with weakness for a non ST IA and possibly pneumonia which may be secondary to aspiration. The patient is a poor historian. Information is supplemented by her son who is her primary caregiver. She was doing well prior to two days prior to admission when she became increasingly weak, unable to feed herself along with episodes of vomiting. She was slumped over in the chair. She has a history of a major stroke many years ago, more than 30, with residual paraplegia. She has been bedbound with transfers by her son from the bed to a chair. She has apparently had a history of lupus in the past but has not been actively treated, nor has she had a stroke for many years. She also had not had a seizure for many years as well. Her regular home medications include: Keppra, Klonopin, simvastatin, and potassium. She recently switched physicians, was seen by [facility] and had labs done. CBC done at [facility] from what looks like [facility] blood draws show that her thrombocytopenia preceded this admission. CBC October 12, 2015, showed a white count of 4.9, hemoglobin 11.2, platelet count 95,000. Platelet count dropped to 80,000 on October 18 and on October 25, it was 69,000. Currently, platelet count is 55,000 without any evidence of bleeding. As far as her son can recollect, she has not had a history of thrombocytopenia in the past. PAST MEDICAL HISTORY 1. History of hyperlipidemia. 2. Lupus. 3. Strokes with a history of paraplegia. 4. Seizure disorder. 5. Osteoporosis. ALLERGIES Penicillin. PAST SURGICAL HISTORY 1. Hysterectomy. 2. Bilateral foot decubitus which have been healed with IV antibiotics. SOCIAL HISTORY Unit #: [id number] #: [id number] Patient: PEDRO CAREY Smokes half pack a day. Lives with son and son's family. Does not drink any alcohol. FAMILY HISTORY Negative for blood disorders. REVIEW OF SYSTEMS Difficult to obtain because the patient is a poor historian because of above. PHYSICAL EXAMINATION GENERAL: She is a small frail middle-aged woman who looks older than stated age. She is awake, alert. May be mildly confused. VITAL SIGNS: Temperature is 98.3, pulse 130, respiratory rate 27, blood pressure 107/78, O2 saturations 91%. HEENT: Shows pupils are equal, react well. She is pale but not icteric. Mucous membranes are somewhat dry. NECK: No adenopathy, JVD, thyromegaly. CARDIOVASCULAR: First and second heart sounds are heard and are regular. LUNGS: Chest expansion appears symmetric. A few scattered rhonchi. ABDOMEN: Soft, nontender. Bowel sounds are present. EXTREMITIES: Deformities of both feet are noted related to longstanding nonuse from paraplegia. CENTRAL NERVOUS SYSTEM: She is awake, alert, oriented with weakness of both lower extremities. SKIN: Negative. ALLERGIES: Negative. LYMPHATIC: No palpable nodes. PSYCHIATRIC: Affect appears normal. She is otherwise pleasant and cooperative. DIAGNOSTIC STUDIES LABORATORY: CBC as mentioned. Lipid profile shows HDL of 22, LDL 32, potassium level is 0.26. Lactic acid is currently 1.7 after being previously higher. A troponin level was 8.76. A complete metabolic panel shows a BUN of 43, creatinine 1.3, eGFR is 44.9, albumin is 2.3. ASSESSMENT AND PLAN Ms. Pedro Carey is 61 years old with a history of previous strokes and seizure disorder, who is currently disabled and bedbound secondary to paraplegia. She is admitted with a two-day history of weakness, nausea, vomiting after being found slumped over by her son. Labs reveal an acute non ST myocardial infarction and x-rays suggest an aspiration pneumonia which is currently being treated. She has been thrombocytopenic; however, longer than this admission, from early October, suggesting the thrombocytopenia may be more chronic. None of her medications appear to be responsible at this time. RECOMMENDATIONS 1. Workup of B12, folic acid, iron, (1) . 2. PT, PTT, fibrinogen, D-dimer. 3. Will get copies of the CBC from her previous physicians prior to [facility]. 4. Based upon that, will make a decision about anticoagulation. Thank you for allowing me to participate in her care. Unit #: [id number] #: [id number] Patient: PEDRO CAREY Dictated by... Kassie Benítez/roberto TD: 12/03/2016 13:23 JOB #: [id number] CONSULTATION REPORT Page 1 of 1 X Jesus Srivastava MD CONSULTATION REPORT
--- NOTE | ~2016-12-01 | DS ---
Unit #: [id number] #: [id number] Patient: HEATHER BONILLA [id number] [address] [address] [id number] I MR#: [id number] NAME: HEATHER BONILLA. [facility] Age: 61 Sex: F Admission Date: 12/01/2016 : 1955 Discharge Date: Attending Physician: Kandi Lilly M.D. Primary Care Physician: No Primary Care Physician DISCHARGE SUMMARY DISCHARGE DIAGNOSES 1. The patient is a DO NOT RESUSCITATE, very, very poor prognosis, actively dying, on two pressors. The son is at bedside, wants comfort care and Hospice care. Hospice has been consulted, waiting on them to talk to family. 2. Cardiogenic shock. 3. Septic shock. 4. Non-ST myocardial infarction with a troponin maximum elevated at 8.76. 5. Aspiration pneumonia. 6. Acute hypoxic respiratory failure on ventilation, intubated currently. 7. Oliguria. 8. Metabolic acidosis. 9. Likely ischemic bowel from pressors. 10. Bilateral feet and upper extremity edema from pressors not present on admission. 11. Left lung mucous plug status post bronchoscopy x2. 12. Urinary tract infection. Yeast present. 13. History of systemic lupus erythematosus. 14. History of severe multiple strokes. 15. Hyperlipidemia. 16. Paraplegia from history of multiple strokes in the past. 17. Seizures. 18. Osteoporosis. 19. Left lung collapse with mucous plug. 20. Severe thrombocytopenia from sepsis. 21. Anemia, acute on chronic. No active bleeding. 22. Severe hyponatremia. 23. Severe hypocalcemia. 24. Severe protein malnutrition. CONSULTATIONS 1. Dr. Daniels. 2. Dr. Mao. 3. Dr. Rosen. 4. Dr. Srivastava. 5. Dr. Santiago. 6. Dr. Bass. PROCEDURES 1. The patient had endotracheal intubation on December 01, 2016. 2. The patient had bronchoscopy on December 01, 2016. 3. The patient had second time direct laryngoscope intubation on December 07, 2016. 4. Repeat bronchoscopy done on December 07, 2016 for extensive large mucous Unit #: [id number] #: [id number] Patient: HEATHER BONILLA plugging, mostly on the left side. DIAGNOSTIC STUDIES LABORATORY: Urine culture growing yeast. BNP greater than 4,904. WBC 30.4, hemoglobin 9.0, platelets 139. ABG: pH 7.38, CO2 29, oxygen 71. Sodium 121, potassium 4.3, chloride 94, CO2 19, glucose 115, creatinine 2.2, calcium 7.0. AFB negative. Blood cultures negative. Cytology from bronchoscopy shows inflammatory cells. Blood cultures negative. IMAGING: Chest x-ray shows bilateral infiltrates, slightly worsen, which probably reflects worsening edema. Small effusions present. No pneumothorax. CT chest without contrast shows moderately extensive and dense infiltrate and probable superimposed atelectasis in the left upper lobe. Mild to moderate patchy multifocal infiltrates and atelectasis in the left upper lobe and lingula present. Bilateral pleural effusions present. KUB shows nonobstructive bowel gas pattern, minimal air and distension of transverse colon, extensive aortic and iliac vascular calcifications present. Generalized osteopenia present. HOSPITALIZATION COURSE This is a 61-year-old admitted on December 01, 2016, for aspiration pneumonia and acute non-ST elevation KY. Cardiogenic shock with acute KY and ejection fraction 20%. Patient currently intubated on two pressors, dopamine and Levophed, currently with severe ischemia in both feet and both upper extremities likely from pressors, also likely ischemic bowel not present on admission, likely from severe hypotension and hypoperfusion. Septic shock likely from aspiration pneumonia. The patient was seen by Dr. Bass and Pulmonary. Patient currently on broad-spectrum antibiotics including vancomycin, clindamycin and Azactam and Diflucan. Urinary tract infection with yeast. The patient is on Diflucan. Aspiration pneumonia, mostly on the left side with multiple mucous plugging with left lung collapse status post bronchoscopy x2. Bronch cultures growing yeast. The patient was started on broad-spectrum antibiotics since admission. She was continuing antibiotics as per Infectious Disease recommendations. Acute hypoxic respiratory failure, currently on ventilation, full mode. Acute non-ST KY elevation. Patient seen by Cardiology and currently with cardiac shock. The patient is on two pressors. The patient is very, very sick for any cardiac intervention currently. Acute kidney injury with oliguria with hyperperfusion. The patient received multiple pressors, could not give too much fluid because of cardiogenic shock but she did receive fluid per Cardiology request. Severe metabolic acidosis likely from hypoperfusion and acute kidney injury. The patient is on two pressors. The patient does have lupus and she has a lot of vascular disease also. History of stroke, multiple, at the age of 24 is the first one with lupus likely vascular stroke with history of possible vasculitis. She does have paralysis. Unit #: [id number] #: [id number] Patient: HEATHER BONILLA Discussed with son, Froilan, in detail. He made the DNR on 12/08/2016. Currently, the son wants comfort care. He wants to make decision later today. Hospice has been consulted. The patient has very, very poor prognosis with multiple comorbidities including cardiogenic shock, septic shock, acute KY, present on admission and acute respiratory failure. The patient is very sick and critically ill. The patient is appropriate for comfort care, waiting on son's decision to make her comfort care. Discharge time taken is 50 minutes. Dictated by... Kandi Lilly M.D. GEORGETTE/sherman TD: 12/09/2016 11:29 JOB #: [id number] DISCHARGE SUMMARY Page 1 of 1 X Kandi Lilly MD X DISCHARGE SUMMARY
--- NOTE | ~2016-12-01 | CR72 ---
[facility] A Service of [facility] RADIOLOGY TEXT RESULTS PATIENT: HEATHER BONILLA LOCATION: [address] : [birth year] UNIT #: [id number] AGE: [address]: Kandi Lilly MD SEX: F ORDER DR: [id number] [facility] [address] [place], [place] [address] [id number] I MR#: [id number] Acc #: [id number] NAME: HEATHER BONILLA. : 1955 SEX: F STUDY DATE/TIME: 12/04/2016 5:42 UNIT: [facility] ROOM: [facility] STUDY DESCRIPTION: CR Chest Single View Portable Attending Physician: Kandi Lilly M.D. Ordering Physician: Wild Santiago M.D. Primary Care Physician: No Primary Care Physician MEDICAL IMAGING REPORT This report is preliminary unless electronic signature is present EXAM Frontal chest, 12/04/2016 INDICATIONS A 61-year-old female with pneumonia and shortness of air. Symptoms 3 days. History of stroke. TECHNIQUE Frontal chest was performed. Correlation is made with CT 12/03/2016 and chest x-ray 12/03/2016 FINDINGS Right-sided PICC line in satisfactory position and unchanged. The patient is rotated to the left. Cardiac silhouette demonstrates globular cardiomegaly probably unchanged for technical factors. Lung volumes are low. No distinct volume overload. Right lung appears clear. There is dense consolidation in the mid and lower lung zone on the left with a superimposed effusion. New consolidation of the upper lung zone on the left with only a small amount of residual aeration of the upper lobe now present. This may reflect sequela of mucous plugging given rapidity of interval change compared to the prior study. No pneumothorax. There is a somewhat high-riding left shoulder. This may be partly project projectional but raises the possibility of underlying rotator cuff tear. IMPRESSION 1. Worsening appearance of the left lung even when allowing for rotational factors. Preexisting dense consolidation in the mid and lower lung zone with near complete opacification of the upper lung zone which is new. This may reflect sequela of mucous plugging. Findings called to the patient's nurse at the time this dictation. 2. Preexisting left-sided effusion. Right lung appears clear. No pneumothorax. [facility] A Service of [facility] RADIOLOGY TEXT RESULTS PATIENT: HEATHER BONILLA LOCATION: [place] [id number] : [birth year] UNIT #: [id number] AGE: [address]: Kandi Lilly MD SEX: F ORDER DR: 3. Persistent cardiomegaly STAT * RESULT Dictated by... Kristian Fofana M.D. THIS IS AN ELECTRONICALLY VERIFIED REPORT Kristian Fofana M.D. at 12/04/2016 4:12 PM Shankar TD: 12/04/2016 08:54 JOB #: [id number] MEDICAL IMAGING REPORT Page 1 of 1 COPY
--- NOTE | ~2016-12-01 | EKG ---
PATIENT: HEATHER BONILLA UNIT #: [id number] Ventricular Rate: 103 BPM Atrial Rate: 103 BPM P-R Interval: 124 ms QRS Duration: 76 ms Q-T Interval: 344 ms QTC Calculation(Bezet): 450 ms P [place]: 74 degrees Calculated R [place]: 34 degrees Calculated T [place]: 177 degrees Diagnosis Line: Sinus tachycardia with occasional Premature Diagnosis Line: ventricular complexes Diagnosis Line: ST and T wave abnormality, consider anterolateral Diagnosis Line: ischemia Diagnosis Line: Left ventricular hypertrophy Diagnosis Line: Abnormal ECG Diagnosis Line: No previous ECGs available Diagnosis Line: Confirmed by ESTEBAN BOYD MD ([id number]) on 12/07/2016 Diagnosis Line: 2:30:38 PM INTERPRETING MD: DEB ROUSSEAU
--- NOTE | ~2016-12-01 | CO ---
Unit #: [id number] #: [id number] Patient: HEATHER BONILLA [id number] [facility]. [place] [id number] [facility] [place] [facility]. [place], [place] [address] [id number] I MR#: [id number] NAME: HEATHER BONILLA. ROOM: [facility] Age: 61 Sex: F Admission Date: 12/01/2016 : 1955 Attending Physician: Kandi Lilly M.D. Primary Care Physician: No Primary Care Physician Consultation Date: 12/07/2016 CONSULTATION REPORT The patient was admitted to Dr. Joya Borrego. REASON FOR CONSULTATION Fever and sepsis. HISTORY OF PRESENT ILLNESS This is a 61-year-old female that was intubated just prior to my arrival to the unit. She is unable to provide any history and there is no family currently at the bedside. I have discussed with the ICU staff. Patient has a history of lupus, CVA, seizures, and chronic thrombocytopenia that was admitted with a few day history of weakness and decreased appetite, found to be slumped over by her family members. The patient was admitted to the hospital and she was found to have a non ST elevated MS as well as intubation for a mucus plug. Patient was bronched. Her cultures were negative, and she was extubated. However, this morning she was re-intubated secondary to a new mucus plug on the right side. Patient has since been intermittently febrile with no fever over the last 24 hours but her white blood cell count continues to elevate. Patient remains on a Rylan-Synephrine drip. Per the note, she also has some residual paraplegia as well as some vomiting prior to admission, according to the H and P. PAST MEDICAL HISTORY 1. Hyperlipidemia. 2. Lupus. 3. Strokes with history of paraplegia. 4. Seizure disorder. 5. Osteoporosis. ALLERGIES Penicillin with unknown allergy; however, patient was on meropenem. PAST SURGICAL HISTORY 1. Hysterectomy. 2. Bilateral foot wounds that have healed. SOCIAL HISTORY The patient lives with family. She has no alcohol abuse. Positive tobacco abuse. REVIEW OF SYSTEMS Unable to obtain as patient was currently on the ventilator. PHYSICAL EXAMINATION VITAL SIGNS: Temperature is 97.4, 24 hours prior patient's temperature Unit #: [id number] #: [id number] Patient: BROWN,HEATHER R was 102.3 which is her T-max this admission. Pulse is 91, blood pressure 98/64, respiratory rate 25. GENERAL: This is an ill-appearing female that is currently on the ventilator on 100% FIO2. HEENT: Her pupils are sluggish. NECK: Her neck is supple. CARDIOVASCULAR: S1, S2. Regular rate and rhythm. PULMONARY: Rhonchi noted, mainly on the right side, diminished on the left base. ABDOMEN: Positive bowel sounds. Soft. EXTREMITIES: No clubbing, cyanosis, or significant edema. There is a PICC line in the right upper extremity without any evidence of erythema or cellulitis. DIAGNOSTIC STUDIES LABORATORY: BUN 36, creatinine 1.4, sodium 127, potassium 2.9, chloride 99, CO2 of 20. Bilirubin 0.9, AST 29, ALT 22. Procalcitonin on admission was 0.31. Lactic acid yesterday was 1.3. White blood cell count is 25, which is improved from 26.9 yesterday; however, on admission patient's white blood cell count was 11.6. Hemoglobin 9.4, hematocrit 29.3, platelets 132,000 which is improved from her low this admission of 58,000. MICROBIOLOGY: Microbiology data this admission shows blood cultures from yesterday are currently pending. Blood cultures from December 04 are currently negative to date. Bronchoscopy cultures from December 04 are negative. December 02 blood cultures are negative. IMAGING: CT scan of the chest done on December 03 shows dense infiltrate in the left lower lobe, [id number] patchy multifocal infiltrates and atelectasis in the left upper lobe and lingula. Upper pole of the left kidney also reveals tiny air bubbles concerning for left urinary obstruction with possible gas-producing infection versus reflux. Most recent chest x-ray available to me at this time from December 05 shows consolidation of the left base with small left effusion. IMPRESSION This is a 61-year-old female with history of lupus, cerebrovascular accident with paraplegia, seizures, and chronic thrombocytopenia here for approximately one week. Found to have a non ST elevated myocardial infarction, a low ejection fraction with last ejection fraction on echocardiogram of approximately 20% and has been on and off the ventilator for mucus plugging. Patient also has had some intermittent fever spikes up to 102.4 degrees Fahrenheit and has had some elevated white blood cell count without steroid therapy this admission. At this time with new respiratory failure and right mucus plugging, there is concern for new right-sided pneumonia with known left lower lobe infiltrate pneumonia. Patient's bronchoscopy is currently pending this admission, would like to cover patient broadly with antibiotics pending results. Patient also has cardiogenic shock with non ST elevated myocardial infarction, on pressor support currently at this time and will defer to cardiology. Patient's leukocytosis and fever are likely multifactorial but new infection cannot be excluded. Patient has not had a urinary analysis since this admission, so would recommend a urinalysis and urine culture. Would also like to repeat a serum procalcitonin level. Will have the nursing staff call with any positive blood cultures from yesterday's blood culture draw. Due to patient's history of seizure activity and on Keppra at home, would recommend to discontinue meropenem as this has been known to decrease the seizure threshold. Would like to initiate aztreonam secondary to Unit #: [id number] #: [id number] Patient: HEATHER BONILLA patient's penicillin allergy but would need to also cover for anaerobic coverage for possible aspiration pneumonia with clindamycin. This case will be discussed in detail with Dr. Feliciano Bass this day. He will evaluate this patient as well. Thank you for allowing us to participate in the care of this patient. Further recommendations to follow pending patient's clinical course. Dictated by... Gustavo HesterPMarieRMarieN. for Feliciano Bass M.D. DAVIDA/roberto TD: 12/07/2016 09:19 JOB #: [id number] CONSULTATION REPORT Page 1 of 1 X X CONSULTATION REPORT
--- NOTE | ~2016-12-01 | CO ---
Unit #: [id number] #: [id number] Patient: HEATHER BONILLA [id number] [address] [address] [id number] MR#: [id number] NAME: HEATHER BONILLA. ROOM: [facility] Age: 61 Sex: F Admission Date: 12/01/2016 : 1955 Attending Physician: Kandi Lilly M.D. Primary Care Physician: No Primary Care Physician Consultation Date: 12/02/2016 CONSULTATION REPORT REASON FOR CONSULTATION ICU Management. HISTORY OF PRESENT ILLNESS This is a very pleasant 61-year-old female with unfortunate past medical history significant for multiple stroke, lupus, seizure disorder, hyperlipidemia, hypertension, who presented to the emergency room as a transfer from [facility] emergency department for evaluation of heart attack. Per son, who is her medical power of employment attorney, patient lives at home and she is bedbound. She is unable to ambulate or get out of bed. However, she is able to feed herself and smoke cigarettes. He stated that yesterday she suddenly became profoundly weak and slumped over. He thought initially that she was having a stroke so he brought her to the emergency room for testing. He denied any fever, chills. He denies any cough until late yesterday evening. Here is no diarrhea but she vomited twice. In the emergency room, the patient was found to have an ST elevation [place] and her chest x-ray was concerning for pneumonia versus pulmonary edema. PAST MEDICAL HISTORY 1. Lupus. 2. Hyperlipidemia. 3. Multiple ischemic strokes. 4. Seizures. 5. Osteoporosis. 6. Smoker. PAST SURGICAL HISTORY 1. Total abdominal hysterectomy. 2. Bilateral foot decubitus debridement. ALLERGIES Penicillin. HOME MEDICATIONS 1. Klonopin. 2. Zocor. 3. Keppra. 4. Potassium. SOCIAL HISTORY Unit #: [id number] #: [id number] Patient: HEATHER BONILLA The patient lives with her son at home. She is bedbound and unable to ambulate. She only feeds herself and smokes. No history of alcohol or drug abuse. FAMILY HISTORY Negative for coronary artery disease. REVIEW OF SYSTEMS Twelve point review of systems were obtained from the son and were negative except for what was mentioned in the HPI. PHYSICAL EXAMINATION GENERAL: The patient is confused and weak. VITAL SIGNS: Blood pressure 81/45 with MAP of 65, respiratory rate 32, O2 saturation 96% on 2 L nasal cannula. HEENT: Atraumatic, normocephalic. PERRLA, EOMI. NECK: Supple. No JVD, no lymphadenopathy. CHEST: Bilateral fine rhonchi. HEART: S1, S2. No murmur, gallops or rubs. ABDOMEN: Soft, nontender. Bowel sounds positive. No hepatosplenomegaly. EXTREMITIES: Trace edema with bilateral lower extremity weakness and contraction. SKIN: No rashes. 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 She is bedbound with bilateral lower extremity weakness. DIAGNOSTIC STUDIES LABORATORY: Creatinine 1.3, sodium 138, CO2 15, white blood count is 11.6, hemoglobin 9.1. IMAGING: Chest x-ray - bilateral interstitial infiltrate. ASSESSMENT 1. Acute hypoxic respiratory failure. 2. Cardiogenic shock. 3. Rule out pneumonia. 4. Non-ST elevation myocardial infarction. 5. Acute kidney injury. 6. Thrombocytopenia. 7. Low bicarb. 8. Lupus. 9. History of cerebrovascular accident. 10. Immobility syndrome. PLAN 1. The patient is critical and expects to decompensate further. I discussed code status with the son. He stated that he wants her to be Full Code at this point. However, if prognosis turns to be poor with no quality of life, he would re-discuss her code status. 2. A quick bedside ultrasound by me showed an ejection fraction of 10% to 15%. We are waiting on the official echocardiogram. 3. Will add Levophed for systolic blood pressure more than 95. 4. We will hold on IV fluids pending echo result. 5. Stat ABG to determine her acid base status. 6. Change her antibiotics to avoid QT prolongation. However, if her blood culture and procalcitonin are negative, we will discontinue all antibiotics. Unit #: [id number] #: [id number] Patient: HEATHER BONILLA 7. We will hold on aspirin and Plavix due to low platelets and we will discuss with cardiology. 8. Will keep NPO for now. Critical care time spent on this patient was 35 minutes. Dictated by... Kassie Rodriguez TD: 12/02/2016 08:56 JOB #: [id number] CONSULTATION REPORT Page 1 of 1 X YONY WOLFF MD CONSULTATION REPORT
[~2016-12-01 16:08] MED LIST: ALENDRONATE SOD70 MG PO; BACTRIM DS TABL1 TA1 PO; BONIVA150 MG PO; CIPRO PO; CLONAZEPAM0.5 MG; DILANTIN PO; FORTEO750 MCG/3 INJ; HCTZ PO; KEPPRA500 M2 PO; KEPPRA750 MG PO; KLONOPIN1 MG PO; LISINOPRIL PO; MACROBID100 M1 DOB; MICATIN14 GM TP; PHENOBARB PO; PYRIDIUM PO; QUINAM PO; SIMVASTATIN40 MG PO; VICODIN 5/1 TAB 5/50 PO; VITAMIN D PO; WELLBUTRIN PO
[2016-12-01] MEDS ORDERED: KLONOPIN0.5 MG PO (22:42)
[2016-12-01] MEDS ORDERED: KLOR-CON SPRIN10 MEQ PO (22:43)
[2016-12-01] MEDS ORDERED: KEPPRA500 M2 PO (22:43)
[2016-12-01 23:06] LABS: BASOPHIL# 0.1 X10e3 (0-0.3); BASOPHIL% 0.6 % (0-2.5); EOSINOPHIL# 0.1 X10e3 (0-0.7); EOSINOPHIL% 0.9 % (0.0-7.0); HEMATOCRIT 29.5 % (35.0-45.0); HEMOGLOBIN 9.1 gm/dL (12.0-16.0); LYMPHOCYTE# 2.2 X10e3 (1.0-3.5); MEAN CELL VOLUME 87.7 FL (83-96); MEAN CORPUSCULAR HEMOGLOBIN 27.2 PG (28-34); MEAN PLATELET VOLUME 10.2 FL (6.5-11.5); MONOCYTE# 0.6 X10e3 (0-1.0); MONOCYTE% 5.4 % (3.0-12.0); NEUTROPHIL# 8.6 X10e3 (1.5-7.1); NEUTROPHIL% 74.1 % (40-75); PLATELET COUNT 58 X10e3 (140-420); RED BLOOD COUNT 3.36 X10e (3.90-5.30); RED CELL DISTRIBUTION WIDTH 14.6 % (11.0-15.5); WHITE BLOOD COUNT 11.6 X10e3 (4.0-10.5)
[2016-12-01 23:07] LABS: DIFF IND NO
[2016-12-01 23:31] LABS: BUN/CREATININE RATIO 31.42; CALCIUM SERUM 7.5 mg/dL (8.4-10.2); CREATININE SERUM 1.4 mg/dL (0.6-1.4); POTASSIUM 4.1 mmol/L (3.5-5.1)
[2016-12-02 05:25] LABS: BASOPHIL# 0.1 X10e3 (0-0.3); BASOPHIL% 0.6 % (0-2.5); EOSINOPHIL# 0.1 X10e3 (0-0.7); EOSINOPHIL% 0.9 % (0.0-7.0); HEMATOCRIT 28.6 % (35.0-45.0); LYMPHOCYTE# 2.1 X10e3 (1.0-3.5); LYMPHOCYTE% 19.2 % (17.0-45.0); MEAN CELL VOLUME 88.1 FL (83-96); MEAN CORPUSCULAR HEMOGLOBIN 27.8 PG (28-34); MEAN CORPUSCULAR HGB CONC 31.5 g/dL (30-36); MEAN PLATELET VOLUME 10.4 FL (6.5-11.5); MONOCYTE# 0.7 X10e3 (0-1.0); MONOCYTE% 6.2 % (3.0-12.0); NEUTROPHIL# 7.8 X10e3 (1.5-7.1); NEUTROPHIL% 73.1 % (40-75); PLATELET COUNT 55 X10e3 (140-420); RED BLOOD COUNT 3.25 X10e (3.90-5.30); RED CELL DISTRIBUTION WIDTH 14.6 % (11.0-15.5); WHITE BLOOD COUNT 10.7 X10e3 (4.0-10.5)
[2016-12-02 05:26] LABS: DIFF IND NO
[2016-12-02 05:30] LABS: INR 1.2; PROTHROMBIN TIME (PATIENT) 12.5 SECONDS (10.0-11.7)
[2016-12-02 06:12] LABS: ALBUMIN SERUM 2.3 g/dL (3.5-5.0); BILIRUBIN,TOTAL 0.7 mg/dL (0.2-2.0); BUN/CREATININE RATIO 33.07; CALCIUM SERUM 7.4 mg/dL (8.4-10.2); CREATININE SERUM 1.3 mg/dL (0.6-1.4); GLOM FILT RATE Estimated 44.9 mL/min (>60); POTASSIUM 4.5 mmol/L (3.5-5.1); PROTEIN TOTAL SERUM 5.8 g/dL (6.0-8.3)
[2016-12-02 07:59] LABS: ARTERIAL BLD GAS O2 SATURATION 97.4 % (90.0-100.0); ARTERIAL BLOOD GAS CARBOXY HB 0.3 %sat (0.0-9.0); ARTERIAL BLOOD GAS MET HB 0.7 %sat (0.0-2.0); ARTERIAL BLOOD GAS PCO2 21.7 mmHg (35.0-45.0); ARTERIAL BLOOD GAS pH 7.353 (7.350-7.450)
[2016-12-02 08:00] LABS: ARTERIAL BLOOD GAS ALLEN TEST NORMAL; ARTERIAL BLOOD GAS ART SITE RIGHT RADIAL; ARTERIAL BLOOD GAS DELIVERY NASAL CANNULA; ARTERIAL DRAW? YES
[2016-12-02 12:24] LABS: CHOLESTEROL 78 mg/dL (0-200); HDL CHOLESTEROL 22 mg/dL (35-95); LDL CHOLESTEROL 32 mg/dL (-130); LDL/HDL RATIO 1 RATIO (0-4); TRIGLYCERIDES 121 mg/dL (10-160)
[2016-12-02 13:07] LABS: BUN/CREATININE RATIO 23.75; CREATININE SERUM 1.6 mg/dL (0.6-1.4); GLOM FILT RATE Estimated 34.9 mL/min (>60); POTASSIUM 4.3 mmol/L (3.5-5.1)
[2016-12-02 14:17] LABS: IRON SERUM 70 ug/dL (28-170); TOTAL IRON BINDING CAPACITY 239 ug/dL (269-535); TRANSFERRIN 171 mg/dL (192-382); TRANSFERRIN SATURATION 29 % (20-50)
[2016-12-02 14:51] LABS: FOLATE (FOLIC ACID) 9.1 ng/mL (>5.8)
[2016-12-03 06:28] LABS: BASOPHIL# 0.1 X10e3 (0-0.3); BASOPHIL% 0.8 % (0-2.5); EOSINOPHIL# 0.1 X10e3 (0-0.7); EOSINOPHIL% 0.6 % (0.0-7.0); HEMOGLOBIN 10.5 gm/dL (12.0-16.0); LYMPHOCYTE# 1.4 X10e3 (1.0-3.5); MEAN CORPUSCULAR HEMOGLOBIN 27.6 PG (28-34); MEAN CORPUSCULAR HGB CONC 31.7 g/dL (30-36); MONOCYTE# 0.5 X10e3 (0-1.0); MONOCYTE% 4.7 % (3.0-12.0); NEUTROPHIL# 7.8 X10e3 (1.5-7.1); NEUTROPHIL% 79.9 % (40-75); RED BLOOD COUNT 3.79 X10e (3.90-5.30); RED CELL DISTRIBUTION WIDTH 14.2 % (11.0-15.5); WHITE BLOOD COUNT 9.7 X10e3 (4.0-10.5)
[2016-12-03 06:31] LABS: INR 1.2; PARTIAL THROMBOPLASTIN TIME 32.1 SECONDS (23.5-31.3); PROTHROMBIN TIME (PATIENT) 12.6 SECONDS (10.0-11.7)
[2016-12-03 06:36] LABS: ALBUMIN SERUM 2.6 g/dL (3.5-5.0); BILIRUBIN,TOTAL 0.6 mg/dL (0.2-2.0); BUN/CREATININE RATIO 26.66; CALCIUM SERUM 8.4 mg/dL (8.4-10.2); CREATININE SERUM 1.5 mg/dL (0.6-1.4); GLOM FILT RATE Estimated 37.8 mL/min (>60); MAGNESIUM 1.6 mg/dL (1.6-3.0); PHOSPHOROUS 3.8 mg/dL (2.5-4.6); POTASSIUM 3.4 mmol/L (3.5-5.1); PROTEIN TOTAL SERUM 6.8 g/dL (6.0-8.3)
[2016-12-03 08:25] LABS: DIFF IND YES; PLATELET COUNT 95 X10e3 (140-420)
[2016-12-03 08:29] LABS: ANISOCYTOSIS SL; PLATELET ESTIMATE DECREASED (NORMAL); ROULEAUX SLIGHT
[2016-12-03 12:52] LABS: CK TOTAL 42 IU/L (26-140)
[2016-12-04 04:41] LABS: ARTERIAL BLD GAS O2 SATURATION 90.6 % (90.0-100.0); ARTERIAL BLOOD GAS CARBOXY HB 0.6 %sat (0.0-9.0); ARTERIAL BLOOD GAS HCO3 19.5 mmol/L; ARTERIAL BLOOD GAS MET HB 0.8 %sat (0.0-2.0); ARTERIAL BLOOD GAS PCO2 32.9 mmHg (35.0-45.0); ARTERIAL BLOOD GAS pH 7.382 (7.350-7.450)
[2016-12-04 04:49] LABS: ARTERIAL BLOOD GAS ART SITE LEFT BRACHIAL; ARTERIAL BLOOD GAS DELIVERY NASAL CANNULA; ARTERIAL BLOOD GAS PO2 60.8 mmHg (80.0-100); ARTERIAL DRAW? YES
[2016-12-04 06:02] LABS: BASOPHIL# 0.1 X10e3 (0-0.3); BASOPHIL% 0.5 % (0-2.5); EOSINOPHIL# 0.2 X10e3 (0-0.7); EOSINOPHIL% 1.2 % (0.0-7.0); HEMATOCRIT 33.4 % (35.0-45.0); HEMOGLOBIN 10.6 gm/dL (12.0-16.0); LYMPHOCYTE# 2.2 X10e3 (1.0-3.5); LYMPHOCYTE% 17.3 % (17.0-45.0); MEAN CELL VOLUME 85.7 FL (83-96); MEAN CORPUSCULAR HEMOGLOBIN 27.2 PG (28-34); MEAN CORPUSCULAR HGB CONC 31.7 g/dL (30-36); MEAN PLATELET VOLUME 9.2 FL (6.5-11.5); MONOCYTE# 0.6 X10e3 (0-1.0); MONOCYTE% 4.7 % (3.0-12.0); NEUTROPHIL# 9.5 X10e3 (1.5-7.1); NEUTROPHIL% 76.3 % (40-75); PLATELET COUNT 79 X10e3 (140-420); RED CELL DISTRIBUTION WIDTH 14.1 % (11.0-15.5); WHITE BLOOD COUNT 12.5 X10e3 (4.0-10.5)
[2016-12-04 06:04] LABS: DIFF IND NO
[2016-12-04 06:34] LABS: ALBUMIN SERUM 2.5 g/dL (3.5-5.0); BILIRUBIN,TOTAL 0.4 mg/dL (0.2-2.0); BUN/CREATININE RATIO 27.14; CALCIUM SERUM 8.2 mg/dL (8.4-10.2); CREATININE SERUM 1.4 mg/dL (0.6-1.4); POTASSIUM 3.2 mmol/L (3.5-5.1); PROTEIN TOTAL SERUM 6.6 g/dL (6.0-8.3)
[2016-12-04 12:12] LABS: ARTERIAL BLD GAS O2 SATURATION 98.6 % (90.0-100.0); ARTERIAL BLOOD GAS CARBOXY HB 0.1 %sat (0.0-9.0); ARTERIAL BLOOD GAS HCO3 17.5 mmol/L; ARTERIAL BLOOD GAS MET HB 0.9 %sat (0.0-2.0); ARTERIAL BLOOD GAS PCO2 28.2 mmHg (35.0-45.0)
[2016-12-04 12:13] LABS: ARTERIAL BLOOD GAS ALLEN TEST NORMAL; ARTERIAL BLOOD GAS ART SITE LEFT RADIAL; ARTERIAL BLOOD GAS DELIVERY VENT; ARTERIAL BLOOD GAS VENT MODE AC; ARTERIAL DRAW? YES
[2016-12-04 14:00] LABS: BF TOTAL NUCLEATED CELL COUNT 3303 CMM (0-100); BODY FLUID APPEARANCE HAZY; BODY FLUID RBC <10000 CMM; BODY FLUID SOURCE BRONCHIAL LAVAGE
[2016-12-05 04:41] LABS: ARTERIAL BLD GAS O2 SATURATION 98.8 % (90.0-100.0); ARTERIAL BLOOD GAS CARBOXY HB 0.1 %sat (0.0-9.0)
[2016-12-05 04:52] LABS: ARTERIAL BLOOD GAS ALLEN TEST NORMAL; ARTERIAL BLOOD GAS ART SITE LEFT RADIAL; ARTERIAL BLOOD GAS DELIVERY VENT; ARTERIAL BLOOD GAS VENT MODE AC; ARTERIAL DRAW? YES
[2016-12-05 06:03] LABS: BASOPHIL# 0.1 X10e3 (0-0.3); BASOPHIL% 0.4 % (0-2.5); EOSINOPHIL% 0.1 % (0.0-7.0); HEMATOCRIT 32.2 % (35.0-45.0); HEMOGLOBIN 10.3 gm/dL (12.0-16.0); LYMPHOCYTE% 9.7 % (17.0-45.0); MEAN CELL VOLUME 85.1 FL (83-96); MEAN CORPUSCULAR HEMOGLOBIN 27.2 PG (28-34); MEAN PLATELET VOLUME 10.2 FL (6.5-11.5); MONOCYTE% 4.9 % (3.0-12.0); NEUTROPHIL# 17.4 X10e3 (1.5-7.1); NEUTROPHIL% 84.9 % (40-75); PLATELET COUNT 83 X10e3 (140-420); RED BLOOD COUNT 3.78 X10e (3.90-5.30); RED CELL DISTRIBUTION WIDTH 14.2 % (11.0-15.5)
[2016-12-05 06:07] LABS: WHITE BLOOD COUNT 20.4 X10e3 (4.0-10.5)
[2016-12-05 06:08] LABS: ALBUMIN SERUM 2.2 g/dL (3.5-5.0); BILIRUBIN,TOTAL 0.4 mg/dL (0.2-2.0); BUN/CREATININE RATIO 26.66; CALCIUM SERUM 7.5 mg/dL (8.4-10.2); CREATININE SERUM 1.5 mg/dL (0.6-1.4); DIFF IND YES; GLOM FILT RATE Estimated 37.8 mL/min (>60); MAGNESIUM 2.2 mg/dL (1.6-3.0); PHOSPHOROUS 3.6 mg/dL (2.5-4.6); POTASSIUM 3.1 mmol/L (3.5-5.1); PROTEIN TOTAL SERUM 6.6 g/dL (6.0-8.3)
[2016-12-05 06:35] LABS: ANISOCYTOSIS SL; PLATELET ESTIMATE DECREASED (NORMAL)
[2016-12-05 13:37] LABS: ARTERIAL BLD GAS O2 SATURATION 98.4 % (90.0-100.0); ARTERIAL BLOOD GAS CARBOXY HB 0.3 %sat (0.0-9.0); ARTERIAL BLOOD GAS HCO3 14.3 mmol/L; ARTERIAL BLOOD GAS MET HB 0.8 %sat (0.0-2.0); ARTERIAL BLOOD GAS PCO2 23.8 mmHg (35.0-45.0); ARTERIAL BLOOD GAS pH 7.388 (7.350-7.450)
[2016-12-05 13:39] LABS: ARTERIAL BLOOD GAS ALLEN TEST NORMAL; ARTERIAL BLOOD GAS ART SITE LEFT RADIAL; ARTERIAL BLOOD GAS DELIVERY VENT; ARTERIAL BLOOD GAS VENT MODE CPAP; ARTERIAL DRAW? YES
[2016-12-05 13:58] LABS: ARTERIAL BLD GAS O2 SATURATION 63.4 % (90.0-100.0); ARTERIAL BLOOD GAS CARBOXY HB 0.7 %sat (0.0-9.0); ARTERIAL BLOOD GAS HCO3 15.1 mmol/L; ARTERIAL BLOOD GAS PCO2 29.2 mmHg (35.0-45.0); ARTERIAL BLOOD GAS pH 7.322 (7.350-7.450)
[2016-12-05 13:59] LABS: ARTERIAL BLOOD GAS DELIVERY VENT; ARTERIAL BLOOD GAS PO2 36.7 mmHg (80.0-100); ARTERIAL BLOOD GAS VENT MODE CPAP; ARTERIAL DRAW? NO
[2016-12-06 04:12] LABS: BASOPHIL# 0.1 X10e3 (0-0.3); BASOPHIL% 0.4 % (0-2.5); EOSINOPHIL% 0.1 % (0.0-7.0); HEMATOCRIT 30.3 % (35.0-45.0); HEMOGLOBIN 9.5 gm/dL (12.0-16.0); LYMPHOCYTE# 1.8 X10e3 (1.0-3.5); LYMPHOCYTE% 6.5 % (17.0-45.0); MEAN CELL VOLUME 86.1 FL (83-96); MEAN CORPUSCULAR HEMOGLOBIN 26.9 PG (28-34); MEAN CORPUSCULAR HGB CONC 31.3 g/dL (30-36); MEAN PLATELET VOLUME 10.8 FL (6.5-11.5); MONOCYTE# 1.2 X10e3 (0-1.0); MONOCYTE% 4.3 % (3.0-12.0); NEUTROPHIL# 23.8 X10e3 (1.5-7.1); NEUTROPHIL% 88.7 % (40-75); PLATELET COUNT 97 X10e3 (140-420); RED BLOOD COUNT 3.52 X10e (3.90-5.30); RED CELL DISTRIBUTION WIDTH 14.3 % (11.0-15.5); WHITE BLOOD COUNT 26.9 X10e3 (4.0-10.5)
[2016-12-06 04:13] LABS: DIFF IND NO
[2016-12-06 04:19] LABS: ARTERIAL BLD GAS O2 SATURATION 97.5 % (90.0-100.0); ARTERIAL BLOOD GAS CARBOXY HB 0.5 %sat (0.0-9.0); ARTERIAL BLOOD GAS HCO3 13.6 mmol/L; ARTERIAL BLOOD GAS MET HB 1.1 %sat (0.0-2.0); ARTERIAL BLOOD GAS PCO2 22.8 mmHg (35.0-45.0); ARTERIAL BLOOD GAS pH 7.384 (7.350-7.450)
[2016-12-06 04:23] LABS: ARTERIAL BLOOD GAS ART SITE LEFT BRACHIAL; ARTERIAL BLOOD GAS DELIVERY VENT; ARTERIAL BLOOD GAS VENT MODE AC; ARTERIAL DRAW? YES
[2016-12-06 04:25] LABS: BILIRUBIN,TOTAL 0.6 mg/dL (0.2-2.0); BUN/CREATININE RATIO 27.85; CALCIUM SERUM 7.4 mg/dL (8.4-10.2); CREATININE SERUM 1.4 mg/dL (0.6-1.4); MAGNESIUM 2.5 mg/dL (1.6-3.0); PHOSPHOROUS 2.7 mg/dL (2.5-4.6); POTASSIUM 4.4 mmol/L (3.5-5.1); PROTEIN TOTAL SERUM 6.1 g/dL (6.0-8.3)
[2016-12-06 11:37] LABS: ARTERIAL BLD GAS O2 SATURATION 94.9 % (90.0-100.0); ARTERIAL BLOOD GAS CARBOXY HB 0.5 %sat (0.0-9.0); ARTERIAL BLOOD GAS HCO3 13.8 mmol/L; ARTERIAL BLOOD GAS MET HB 0.8 %sat (0.0-2.0); ARTERIAL BLOOD GAS PCO2 24.5 mmHg (35.0-45.0); ARTERIAL BLOOD GAS pH 7.358 (7.350-7.450)
[2016-12-06 11:38] LABS: ARTERIAL BLOOD GAS ALLEN TEST NORMAL; ARTERIAL BLOOD GAS ART SITE RIGHT RADIAL; ARTERIAL BLOOD GAS DELIVERY VENT; ARTERIAL BLOOD GAS PO2 76.9 mmHg (80.0-100); ARTERIAL BLOOD GAS VENT MODE CPAP; ARTERIAL DRAW? YES
[2016-12-07 04:00] LABS: BASOPHIL% 0.1 % (0-2.5); EOSINOPHIL# 0.1 X10e3 (0-0.7); EOSINOPHIL% 0.6 % (0.0-7.0); HEMATOCRIT 29.3 % (35.0-45.0); HEMOGLOBIN 9.4 gm/dL (12.0-16.0); LYMPHOCYTE# 1.4 X10e3 (1.0-3.5); LYMPHOCYTE% 5.5 % (17.0-45.0); MEAN CELL VOLUME 83.8 FL (83-96); MEAN CORPUSCULAR HEMOGLOBIN 26.9 PG (28-34); MEAN CORPUSCULAR HGB CONC 32.1 g/dL (30-36); MEAN PLATELET VOLUME 11.3 FL (6.5-11.5); MONOCYTE# 1.1 X10e3 (0-1.0); MONOCYTE% 4.5 % (3.0-12.0); NEUTROPHIL# 22.3 X10e3 (1.5-7.1); NEUTROPHIL% 89.3 % (40-75); PLATELET COUNT 132 X10e3 (140-420); RED BLOOD COUNT 3.49 X10e (3.90-5.30); RED CELL DISTRIBUTION WIDTH 14.3 % (11.0-15.5)
[2016-12-07 04:03] LABS: ARTERIAL BLD GAS O2 SATURATION 93.8 % (90.0-100.0); ARTERIAL BLOOD GAS CARBOXY HB 0.6 %sat (0.0-9.0); ARTERIAL BLOOD GAS HCO3 19.7 mmol/L; ARTERIAL BLOOD GAS MET HB 0.6 %sat (0.0-2.0); ARTERIAL BLOOD GAS PCO2 28.9 mmHg (35.0-45.0); ARTERIAL BLOOD GAS pH 7.442 (7.350-7.450)
[2016-12-07 04:05] LABS: ARTERIAL BLOOD GAS ART SITE LEFT BRACHIAL; ARTERIAL BLOOD GAS PO2 66.7 mmHg (80.0-100); ARTERIAL DRAW? YES
[2016-12-07 04:06] LABS: DIFF IND NO
[2016-12-07 04:20] LABS: ALBUMIN SERUM 1.9 g/dL (3.5-5.0); BILIRUBIN,TOTAL 0.9 mg/dL (0.2-2.0); BUN/CREATININE RATIO 25.71; CALCIUM SERUM 6.8 mg/dL (8.4-10.2); CREATININE SERUM 1.4 mg/dL (0.6-1.4); PROTEIN TOTAL SERUM 5.8 g/dL (6.0-8.3)
[2016-12-07 04:22] LABS: POTASSIUM 2.9 mmol/L (3.5-5.1)
[2016-12-07 13:17] LABS: ARTERIAL BLD GAS O2 SATURATION 91.4 % (90.0-100.0); ARTERIAL BLOOD GAS CARBOXY HB 0.5 %sat (0.0-9.0); ARTERIAL BLOOD GAS HCO3 22.3 mmol/L; ARTERIAL BLOOD GAS MET HB 0.7 %sat (0.0-2.0); ARTERIAL BLOOD GAS PCO2 30.2 mmHg (35.0-45.0); ARTERIAL BLOOD GAS pH 7.477 (7.350-7.450)
[2016-12-07 13:19] LABS: ARTERIAL BLOOD GAS ALLEN TEST NORMAL; ARTERIAL BLOOD GAS ART SITE RIGHT RADIAL; ARTERIAL BLOOD GAS DELIVERY VENT; ARTERIAL BLOOD GAS PO2 59.9 mmHg (80.0-100); ARTERIAL BLOOD GAS VENT MODE CPAP; ARTERIAL DRAW? YES
[2016-12-07 15:16] LABS: URINE APPEARANCE TURBID; URINE BILIRUBIN NEG (NEG); URINE BLOOD 2+ (NEG); URINE COLOR YELLOW; URINE GLUCOSE NEG (NEG); URINE KETONE NEG (NEG); URINE LEUKOCYTE ESTERASE 3+ (NEG); URINE NITRATE NEG (NEG); URINE PH 5.5 (5-8); URINE PROTEIN TRACE (NEG); URINE SPECIFIC GRAVITY 1.008 (1.003-1.035); URINE UROBILINOGEN 0.2 MG/DL (NEG)
[2016-12-07 15:20] LABS: URBCS1 AUWI 50-100 /[HPF] (0-2); URINE BACTERIA AUWI NEG (NEGATIVE); URINE SQUAMOUS EPITHELIAL CELL FEW /[HPF]; UWBCS1 AUWI INNUM (0-5)
[2016-12-07 15:29] LABS: URINE YEAST PRESENT
[2016-12-07 23:48] LABS: ANA SCREEN Positive (Negative); ANA TITER COMMENT Has been added (()); NUCLEAR PATTERN (ANA) Homogeneous (())
[2016-12-08 03:01] LABS: BASOPHIL# 0.1 X10e3 (0-0.3); BASOPHIL% 0.2 % (0-2.5); EOSINOPHIL# 0.4 X10e3 (0-0.7); EOSINOPHIL% 1.6 % (0.0-7.0); HEMATOCRIT 30.7 % (35.0-45.0); HEMOGLOBIN 9.8 gm/dL (12.0-16.0); LYMPHOCYTE# 1.3 X10e3 (1.0-3.5); LYMPHOCYTE% 5.2 % (17.0-45.0); MEAN CELL VOLUME 84.6 FL (83-96); MEAN CORPUSCULAR HGB CONC 31.9 g/dL (30-36); MONOCYTE# 0.9 X10e3 (0-1.0); MONOCYTE% 3.6 % (3.0-12.0); NEUTROPHIL# 21.9 X10e3 (1.5-7.1); NEUTROPHIL% 89.4 % (40-75); PLATELET COUNT 148 X10e3 (140-420); RED BLOOD COUNT 3.62 X10e (3.90-5.30); RED CELL DISTRIBUTION WIDTH 14.5 % (11.0-15.5); WHITE BLOOD COUNT 24.5 X10e3 (4.0-10.5)
[2016-12-08 03:02] LABS: DIFF IND NO
[2016-12-08 03:06] LABS: INR 1.3; PROTHROMBIN TIME (PATIENT) 13.7 SECONDS (10.0-11.7)
[2016-12-08 03:07] LABS: PARTIAL THROMBOPLASTIN TIME 65.1 SECONDS (23.5-31.3)
[2016-12-08 03:19] LABS: BUN/CREATININE RATIO 21.25; CALCIUM SERUM 6.9 mg/dL (8.4-10.2); CREATININE SERUM 1.6 mg/dL (0.6-1.4); GLOM FILT RATE Estimated 34.9 mL/min (>60); POTASSIUM 3.8 mmol/L (3.5-5.1)
[2016-12-08 03:58] LABS: ARTERIAL BLD GAS O2 SATURATION 95.6 % (90.0-100.0); ARTERIAL BLOOD GAS CARBOXY HB 0.6 %sat (0.0-9.0); ARTERIAL BLOOD GAS HCO3 19.8 mmol/L; ARTERIAL BLOOD GAS PCO2 29.9 mmHg (35.0-45.0); ARTERIAL BLOOD GAS PO2 84.8 mmHg (80.0-100); ARTERIAL BLOOD GAS pH 7.429 (7.350-7.450)
[2016-12-08 04:02] LABS: ARTERIAL BLOOD GAS ART SITE LEFT BRACHIAL; ARTERIAL BLOOD GAS DELIVERY VENT; ARTERIAL BLOOD GAS VENT MODE AC; ARTERIAL DRAW? YES
[2016-12-08 08:53] LABS: BASOPHIL% 0.1 % (0-2.5); EOSINOPHIL# 0.1 X10e3 (0-0.7); EOSINOPHIL% 0.4 % (0.0-7.0); HEMATOCRIT 30.7 % (35.0-45.0); HEMOGLOBIN 9.7 gm/dL (12.0-16.0); LYMPHOCYTE# 1.1 X10e3 (1.0-3.5); LYMPHOCYTE% 4.1 % (17.0-45.0); MEAN CELL VOLUME 84.9 FL (83-96); MEAN CORPUSCULAR HEMOGLOBIN 26.7 PG (28-34); MEAN CORPUSCULAR HGB CONC 31.5 g/dL (30-36); MEAN PLATELET VOLUME 12.1 FL (6.5-11.5); MONOCYTE% 3.8 % (3.0-12.0); NEUTROPHIL# 25.1 X10e3 (1.5-7.1); NEUTROPHIL% 91.6 % (40-75); PLATELET COUNT 143 X10e3 (140-420); RED BLOOD COUNT 3.62 X10e (3.90-5.30); RED CELL DISTRIBUTION WIDTH 14.3 % (11.0-15.5); WHITE BLOOD COUNT 27.4 X10e3 (4.0-10.5)
[2016-12-08 08:54] LABS: DIFF IND YES
[2016-12-08 10:24] LABS: ANISOCYTOSIS SL; NUCLEATED RED BLOOD CELL 1 /100 (0); PLATELET ESTIMATE NORMAL (NORMAL)
[2016-12-09 04:11] LABS: BASOPHIL% 0.1 % (0-2.5); EOSINOPHIL# 0.1 X10e3 (0-0.7); EOSINOPHIL% 0.2 % (0.0-7.0); HEMATOCRIT 28.4 % (35.0-45.0); LYMPHOCYTE% 3.4 % (17.0-45.0); MEAN CORPUSCULAR HEMOGLOBIN 26.6 PG (28-34); MEAN CORPUSCULAR HGB CONC 31.7 g/dL (30-36); MEAN PLATELET VOLUME 10.9 FL (6.5-11.5); MONOCYTE# 0.8 X10e3 (0-1.0); MONOCYTE% 2.6 % (3.0-12.0); NEUTROPHIL# 28.5 X10e3 (1.5-7.1); NEUTROPHIL% 93.7 % (40-75); PLATELET COUNT 139 X10e3 (140-420); RED BLOOD COUNT 3.38 X10e (3.90-5.30); RED CELL DISTRIBUTION WIDTH 14.5 % (11.0-15.5); WHITE BLOOD COUNT 30.4 X10e3 (4.0-10.5)
[2016-12-09 04:30] LABS: ARTERIAL BLD GAS O2 SATURATION 93.3 % (90.0-100.0); ARTERIAL BLOOD GAS CARBOXY HB 0.5 %sat (0.0-9.0); ARTERIAL BLOOD GAS HCO3 17.1 mmol/L; ARTERIAL BLOOD GAS MET HB 0.4 %sat (0.0-2.0)
[2016-12-09 04:31] LABS: BUN/CREATININE RATIO 17.27; CREATININE SERUM 2.2 mg/dL (0.6-1.4); GLOM FILT RATE Estimated 23.8 mL/min (>60); POTASSIUM 4.3 mmol/L (3.5-5.1)
[2016-12-09 04:34] LABS: ARTERIAL BLOOD GAS ALLEN TEST NORMAL; ARTERIAL BLOOD GAS PO2 71.6 mmHg (80.0-100); ARTERIAL DRAW? YES
[2016-12-09 04:35] LABS: ARTERIAL BLOOD GAS ART SITE LEFT RADIAL; ARTERIAL BLOOD GAS DELIVERY VENT; ARTERIAL BLOOD GAS VENT MODE AC
[2016-12-09 04:38] LABS: DIFF IND YES
[2016-12-09 04:48] LABS: MICROCYTOSIS SL; PLATELET ESTIMATE DECREASED (NORMAL); TOXIC GRANULATION SL; VACUOLIZATION P
== END 2016-12-09 15:00 | DRG 163 ==
LOC: CICCU3 16:08 → UNDOADMIN 16:08 → CICCU3 21:40
PROVIDERS: Internal Medicine; Internal Medicine Cardiovascular Disease; Internal Medicine Hematology & Oncology; Internal Medicine Pulmonary Disease; Nurse Practitioner
PROC: 0BH17EZ Insertion of Endotracheal Airway into Trachea, Via Natural or Artificial Opening (ICD-10-PCS; principal; 2016-12-01)
PROC: 0B9 Respiratory System, Drainage (ICD-10-PCS; 2016-12-01)
PROC: 0B9J8ZX Drainage of Left Lower Lung Lobe, Via Natural or Artificial Opening Endoscopic, Diagnostic (ICD-10-PCS; 2016-12-01)
PROC: 0B9J8ZZ Drainage of Left Lower Lung Lobe, Via Natural or Artificial Opening Endoscopic (ICD-10-PCS; 2016-12-01)
PROC: 0B9G8ZZ Drainage of Left Upper Lung Lobe, Via Natural or Artificial Opening Endoscopic (ICD-10-PCS; 2016-12-01)
PROC: 02HV33Z Insertion of Infusion Device into Superior Vena Cava, Percutaneous Approach (ICD-10-PCS; 2016-12-01)
PROC: 4A02X4A Measurement of Cardiac Electrical Activity, Guidance, External Approach (ICD-10-PCS; 2016-12-01)
PROC: B24BZZZ Ultrasonography of Heart with Aorta (ICD-10-PCS; 2016-12-02)
PROC: 5A1955Z Respiratory Ventilation, Greater than 96 Consecutive Hours (ICD-10-PCS; 2016-12-04)
PROC: 0B9J8ZZ Drainage of Left Lower Lung Lobe, Via Natural or Artificial Opening Endoscopic (ICD-10-PCS; 2016-12-07)
PROC: 0BH18EZ Insertion of Endotracheal Airway into Trachea, Via Natural or Artificial Opening Endoscopic (ICD-10-PCS; 2016-12-07)
DX: J69.0 Pneumonitis due to inhalation of food and vomit (principal); A41.9 Sepsis, unspecified organism; J96.01 Acute respiratory failure with hypoxia; I21.4 Non-ST elevation (NSTEMI) myocardial infarction; R65.21 Severe sepsis with septic shock; E43 Unspecified severe protein-calorie malnutrition; R34 Anuria and oliguria; I50.21 Acute systolic (congestive) heart failure; K55.9 Vascular disorder of intestine, unspecified; N17.9 Acute kidney failure, unspecified; E87.2 Acidosis; N39.0 Urinary tract infection, site not specified; G82.20 Paraplegia, unspecified; E87.1 Hypo-osmolality and hyponatremia; Z68.1 Body mass index [BMI] 19.9 or less, adult; T83.83XA Hemorrhage due to genitourinary prosthetic devices, implants and grafts, initial encounter; D69.6 Thrombocytopenia, unspecified; F17.210 Nicotine dependence, cigarettes, uncomplicated; M32.9 Systemic lupus erythematosus, unspecified; I69.398 Other sequelae of cerebral infarction; R56.9 Unspecified convulsions; M81.0 Age-related osteoporosis without current pathological fracture; D64.9 Anemia, unspecified; E83.51 Hypocalcemia; Z66 Do not resuscitate; Z88.0 Allergy status to penicillin; Z90.710 Acquired absence of both cervix and uterus; Z74.01 Bed confinement status; Y73.1 Therapeutic (nonsurgical) and rehabilitative gastroenterology and urology devices associated with adverse incidents; Y92.239 Unspecified place in hospital as the place of occurrence of the external cause
CPT/HCPCS: 36600; 71010; 71250; 74000; 80048; 80053; 80061; 81003; 82308; 82550; 82607; 82728; 82746; 82803; 82947; 83540; 83550; 83605; 83735; 83880; 84100; 84132; 84484; 85025; 85379; 85610; 85730; 86038; 86039; 86850; 86900; 86901; 87040; 87070; 87086; 87102; 87106; 87116; 87205; 87206; 87252; 87254; 88108; 88305; 88312; 89051; 89190; 92610; 93005; 93306; 94002; 94003; 94640; 94660; 94760; 94761; C9113; G8996-GN; G8997-GN; J0171; J0282; J1265; J1450; J1650; J1940; J1953; J1956; J2185; J2250; J2405; J2765; J3010; J3370; J3475; J3480; J7060

== ENCOUNTER 2016-12-09 15:01 | Inpatient (IN) | payer OTHER ==
[~2016-12-09 15:01] MED LIST changes: +KLONOPIN0.5 MG PO; +KLOR-CON SPRIN10 MEQ PO
== END 2016-12-09 15:30 | disposition expired | DRG 951 ==
LOC: CICCU3 15:01
DX: Z51.5 Encounter for palliative care (principal); J96.01 Acute respiratory failure with hypoxia; I21.4 Non-ST elevation (NSTEMI) myocardial infarction; J18.9 Pneumonia, unspecified organism; I50.21 Acute systolic (congestive) heart failure; A41.9 Sepsis, unspecified organism; R65.21 Severe sepsis with septic shock; Z66 Do not resuscitate; R62.7 Adult failure to thrive; Z88.0 Allergy status to penicillin
CPT/HCPCS: J2060; J2270